=== PATIENT | male | born 1955 | race Caucasian/White ===

== ENCOUNTER 2019-01-28 12:12 | Inpatient (IN) | payer OTHER ==
[2019-01-28] MEDS ORDERED: Albuterol Sulfate 1.25 MG/3 ML NEB ONE (12:22)
[2019-01-28] MEDS ORDERED: Albuterol Sulfate 2.5 mg/3 ml Neb ONE (12:22)
[2019-01-28 13:14] LABS: Actual Bicarbonate (HCO3a) 31.6 mEq/L (22-28); Analyzer IN Cardio ER; Base Excess (BEa) 4.3 mEq/L (-2.0 to +3.0); CO2 Tension 58.5 mmHg (35.0-45.0); Calcium, Ionized 1.14 mmol/L (1.12-1.30); Carboxyhemoglobin (COHb) 0.9 gm% (0.0-3.0); Hemoglobin (Hb) 14.6 g/dL (14.0-18.0); Potassium - ABG Lab 4.29 mmol/L (3.70-5.30); pH, Arterial 7.35 (7.35-7.45)
[2019-01-28 13:16] LABS: Puncture Site LRA
[2019-01-28 13:17] LABS: ALV-art Gradient 17.995 (0-20)
[2019-01-28] MEDS ORDERED: hydrALAZINE 20 MG/ML VIAL ONE (13:42)
[2019-01-28 15:36] LABS: Troponin I Less than 0.010 ng/mL (< 0.028)
[2019-01-28] MEDS ORDERED: Magnesium 2 GM/50 ML 2 GM in Premix Bag 1 BAG IVPB SCH (17:00)
[2019-01-28] MEDS ORDERED: Benzonatate 100 MG CAP PO PRN (17:36)
[2019-01-28] MEDS ORDERED: Ondansetron PF 4 MG/2 ML Vial IVP PRN (17:36)
[2019-01-28] MEDS ORDERED: Ondansetron ODT 4 MG TAB PO PRN (17:36)
[2019-01-28] MEDS ORDERED: Acetaminophen 500 MG TAB PO PRN (17:36)
[2019-01-28 17:38] LABS: Troponin I Less than 0.010 ng/mL (< 0.028)
[2019-01-28] MEDS: methylPREDNISolone Sod Succ 40 MG VIAL IVP SCH (18:08)
[2019-01-28] MEDS: cloNIDine 0.1 MG TAB PO PRN (18:57)
[2019-01-28] MEDS: Mometasone/Formoterol 120 PUFF INHALER INH SCH (19:15)
[2019-01-28] MEDS: Montelukast Sodium 10 mg Tablet PO SCH (20:26)
[2019-01-28] MEDS: Famotidine 20 MG TAB PO SCH (20:27)
[2019-01-28] MEDS: hydrALAZINE 20 MG/ML VIAL SLOW IVP PRN (20:28)
[2019-01-28] MEDS: Nicotine 14 MG PATCH TD SCH (20:29)
[2019-01-28] MEDS ORDERED: Doxycycline 100 MG CAP PO SCH (21:00)
[2019-01-28] MEDS ORDERED: Lorazepam 2 MG/ML VIAL SLOW IVP SCH ×2 (21:15→22:30)
[2019-01-28] MEDS ORDERED: Furosemide 40 MG/4 ML VIAL ONE (22:38)
[2019-01-28] MEDS ORDERED: Furosemide 40 MG/4 ML VIAL SLOW IVP SCH (22:45)
[2019-01-28] MEDS ORDERED: Rocuronium Bromide 10 MG/ML (10ML VIAL) ONE (23:00)
[2019-01-28] MEDS ORDERED: Propofol 1,000 MG/100 ML VIAL IV ONE (23:02)
--- NOTE | 2019-01-28 23:21 | HP ---
PRIMARY CARE PROVIDER: David Herndon MD CHIEF COMPLAINT: Shortness of breath. HISTORY OF PRESENT ILLNESS: This is a 63-year-old male, who initially presented to [facility] complaining of persistent shortness of breath over the last 4 to 5 days. The patient was evaluated by his primary care provider and initiated on antibiotic therapy in addition to prednisone. The patient states he had been using his home nebulizer with increasing frequency most notable in the last 24 hours. The patient states he had persistent shortness of breath that was unremitting with some associated yellow sputum. The patient admitted some chest pressure and pain with shortness of breath, not relieved with his home nebulizer. The patient also admits to using Spiriva and Symbicort. However, this did not change his symptoms or improve his condition. The patient does admit to long-standing smoking history, cutting down to approximately 8 cigarettes a day. The patient denies any home oxygen need or use and denies any prior history of the need for a BiPAP noninvasive mechanical ventilation. The patient denied any documented fever and was afebrile during the initial ER evaluation. In the emergency room, the patient underwent general evaluation in [place], receiving Rocephin and Zithromax in addition to Solu-Medrol, magnesium, and bronchodilator therapy. The patient was also placed on BiPAP noninvasive mechanical ventilation due to concern for COPD exacerbation with persistent symptoms. The patient continued to require oxygen supplementation and BiPAP noninvasive mechanical ventilation and was transferred to [facility] for further evaluation. In the emergency room at [facility], the patient received hydralazine, bronchodilator therapy with DuoNebs, and albuterol sulfate and continued on BiPAP noninvasive mechanical ventilation. Due to the patient's persistent symptoms and need for BiPAP, the patient was transferred to the intermediate care unit for further evaluation. PAST MEDICAL HISTORY: 1. Tobacco abuse. 2. Chronic obstructive pulmonary disease. 3. Hypertension. 4. Lower extremity edema. 5. Restless legs syndrome. PAST SURGICAL HISTORY: 1. Status post vein removal of the left lower extremity. 2. Status post hemorrhoidectomy. 3. Status post LASIK surgery for the eyes. CURRENT MEDICATIONS: 1. Tudorza Pressair 400 mcg inhaled daily. 2. Albuterol sulfate 2 puffs inhaled q.4 hours p.r.n. 3. Celexa 40 mg p.o. daily. 4. Clonidine 0.2 mg p.o. daily. 5. DuoNeb 3 mL nebulized q.i.d. p.r.n. 6. Spiriva HandiHaler 18 mcg inhaled daily. 7. Verapamil extended release 360 mg p.o. daily. ALLERGIES: TO LISINOPRIL. FAMILY HISTORY: Mother of complications of congestive heart failure. Uncles with a history of coronary artery disease and lung cancer. Sister of complications of congestive heart failure. SOCIAL HISTORY: The patient resides in [place], [place]. Disabled. 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 Smokes up to 8 cigarettes daily. Smoked for approximately 40 years. Social alcohol use. The patient admits to social and intermittent marijuana use. REVIEW OF SYSTEMS: CONSTITUTIONAL: Negative for weight loss or gain, ability to conduct usual activities. SKIN: Negative for rash, itching. EYES: Negative for double vision, pain. ENT/MOUTH: Negative for nose bleeding, neck stiffness, pain, tenderness. CARDIOVASCULAR: Negative for palpitations, dyspnea on exertion, orthopnea. RESPIRATORY: Negative for shortness of breath, wheezing, cough, hemoptysis, fever or night sweats. GASTROINTESTINAL: Negative for poor appetite, abdominal pain, heartburn, nausea, vomiting, constipation, or diarrhea. GENITOURINARY: Negative for urgency, frequency, dysuria, nocturia. MUSCULOSKELETAL: Negative for pain, swelling. NEUROLOGIC/PSYCHIATRIC: Negative for anxiety, depression. ALLERGY/IMMUNOLOGIC: Negative for skin rash, bleeding tendency. Otherwise negative except as stated per HPI. PHYSICAL EXAMINATION: VITAL SIGNS: On admission, blood pressure 203/137, heart rate 149, temperature 98.3 degrees Fahrenheit, respiratory rate 24, currently on BiPAP noninvasive mechanical ventilation. GENERAL APPEARANCE: This is a 63-year-old male, alert and oriented x3, pleasant, responsive, in mild respiratory distress. HEENT: Pupils are equal, round, reactive to light and accommodation. Extraocular muscles are intact. BiPAP noninvasive mechanical ventilation mask in place. NECK: Supple, no adenopathy, JVD difficult to appreciate given the patient's body habitus and facial hair. CHEST: Diminished breath sounds bilaterally with coarse sounds and prolonged expiratory phase. CARDIOVASCULAR EXAM: S1 and S2 with tachycardia. No murmur appreciated. Distant heart sounds noted. ABDOMEN: Obese. Landmarks difficult to palpate due to patient's body habitus. EXTREMITIES: Warm and dry with fair turgor. No clubbing, cyanosis, or asymmetric edema appreciated. NEUROLOGIC: Cranial nerves 2 through 12 are grossly intact. No focal or lateralizing signs appreciated. The patient verbal and alert, responding to questions appropriately. PERTINENT LABORATORY DATA AND X-RAY FINDINGS: Basic metabolic profile within normal limits. Calcium 8.9, AST 70, ALT 115, alkaline phosphatase 56, total bilirubin 0.4. BNP 58. ABG dated 01/28/2019 showed a pH 7.35, pCO2 of 58.5, pO2 of 80, bicarb of 31.6, O2 saturation 96% on 24% FiO2 by BiPAP. CBC showed a white blood cell count of 14.8, hemoglobin 13, hematocrit 40, platelet count 163 with 81% neutrophils. EKG dated 01/28/2019 by my interpretation shows a sinus tachycardia with heart rates in the 110s. Normal R-wave progression noted in the precordial leads. Normal axis. No acute ST-T wave changes appreciated. Portable chest x-ray dated 01/28/2019 showed chronic changes in bilateral lung araujo. Poor quality chest film appears under penetrated. ASSESSMENT AND PLAN: 1. Acute hypoxic respiratory failure secondary to chronic obstructive pulmonary disease. We will continue treatment as outlined below. Continue BiPAP noninvasive mechanical ventilation, weaning as clinically indicated. Pulmonology consult appreciated. 2. Acute chronic obstructive pulmonary disease exacerbation. Continue bronchodilator therapy with DuoNebs q.4 hours. Doxycycline 100 mg b.i.d. Solu-Medrol 40 mg IV q.6 hours with additional Spiriva HandiHaler 18 mcg daily. Continue oxygen support as outlined in #1 and monitor clinical response. Pneumo vaccination prior to discharge. 3. Hypertensive urgency. Suspect stress reaction secondary to acute hypoxic respiratory failure and chronic obstructive pulmonary disease. We will resume home blood pressure regimen and add additional hydralazine and clonidine for systolic greater than 170. 4. Tobacco abuse. We will offer smoking cessation resources prior to discharge. Nicotine patch 14 mg transdermally daily. 5. Transaminitis. Etiology unclear. Questionable relation to current presentation. We will repeat LFTs and monitor trend. Potential fatty infiltration of the liver. 6. Prophylaxis. SCDs while in bed. Pepcid 20 mg p.o. b.i.d. CODE STATUS: Do not attempt resuscitation confirmed with the patient. Surrogate medical decision maker is Chelsea William. Job ID: [id number]
[2019-01-28] MEDS ORDERED: Ventilator Sedation Protocol 1 EACH FS ONE (23:22)
[2019-01-28] MEDS ORDERED: DISCONTINUE PREVIOUS NARCOTIC PAIN MEDICATIONS AND BENZODIAZEPINES FS SCH (23:24)
[2019-01-28] MEDS ORDERED: Propofol BOLUS 1,000 MG/100 ML VIAL IV PRN (23:24)
[2019-01-28] MEDS ORDERED: Fentanyl BOLUS 250 ML IVPB PRN (23:24)
[2019-01-28] MEDS ORDERED: Morphine 2 MG/ML SYRINGE SLOW IVP PRN (23:24)
--- NOTE | 2019-01-28 23:29 | PDOC.EVN ---
Event Note - Event Note Event Note: Pt became dyspneic, agitated, unable to tolerate BiPAP, in acute respiratory distress with very high BP/HR, b/l wheezing, labor breathing , respiratory failure, pt decided to have a trial of intubation and daughter agreed over the phone when contacted, with it since this intubation might be transitory, further decisions depepding on pt's clinical course
--- NOTE | 2019-01-28 23:49 | RAD ---
Portable supine frontal chest radiograph: 01/28/2019 COMPARISON: 01/28/2019 HISTORY: Status post intubation FINDINGS: There is a new endotracheal tube in proper position. There is a nasogastric tube present, d istal tip not visualized secondary to technique. There is mild pulmonary vascular prominence with no focal consolidation or alveolar edema. Supine imaging limits assessment for pneumothorax and pleural fluid. IMPRESSION: Endotracheal tube in place. Mild pulmonary vascular prominence with no focal consolidatio n or alveolar edema.
[2019-01-29] MEDS: Lorazepam 2 MG/ML VIAL SLOW IVP PRN ×4 (00:04→19:45)
[2019-01-29] MEDS: cefTRIAXone\\ROCEPHIN 1 GM in Sodium Chloride 0.9% 100 ML IVPB SCH ×2 (00:22→23:13)
[2019-01-29] MEDS: methylPREDNISolone Sod Succ 40 MG VIAL IVP SCH ×5 (00:25→23:14)
[2019-01-29] MEDS: fentaNYL Citrate/PF 2,000 MCG in Sodium Chloride 0.9% 60 ML IV SCH (00:45)
--- NOTE | 2019-01-29 01:44 | PDOC.EVN ---
Event Note - Event Note Event Note: Received page from [facility] nurse that pt needed to be intubated after a code green had been called. Pt on BiPAP on arrival. After confirming pt was not DNR/DNI and calling family, plan was made to intubate. Pt preoxygenated w/ bag mask and oral airway. Meds given included: etomidate 30mg, rocuronium 70mg [place] scope size 3 used to visualize vocal cords. 8-0 ET tube inserted through the vocal cords and advanced. Cuff inflated. ET tube 24cm at lips, 23 cm at teeth and secured in place. Breath sounds heard bilaterally and CO2 colorimeter indicated proper placement in trachea. RT managed ventilator settings. Nurses placed OG tube. Stat CXR to confirm placement. Placement of ET and OG tube appropriate. Dr. Echeverria & Dr. Marrero intubated. Dr. Hutchison (attending) present for duration of the event.
[2019-01-29] MEDS: Propofol 1,000 MG/100 ML VIAL IV PRN ×7 (01:57→23:13)
[2019-01-29 04:18] LABS: Hemoglobin 13.4 g/dL (14.0-18.0); Lymphocytes 5 % (21-51); MDiff Complete? YES; Mean Corpuscular HGB CONC 33.3 g/dL (32.0-36.0); Mean Corpuscular Hemoglobin 30.7 pg (27.0-31.0); Mean Corpuscular Volume 92.1 fL (78.0-98.0); Mean Platelet Volume 7.8 fL (7.4-10.4); Monocytes 4 % (0-10); Neutrophil 91 % (42-75); Platelet Count 180 thou/uL (130-400); Platelet Morphology Comment Appears Adequate; RBC Distribution Width 12.9 % (11.5-14.5); RBC Morphology Normal; Red Blood Cell (RBC) Count 4.37 mill/uL (4.70-6.10); White Blood Cell (WBC) Count 12.8 thou/uL (4.8-10.8)
[2019-01-29 04:26] LABS: ALT (SGPT) 98 U/L (8-55); AST (SGOT) 55 U/L (5-34); Albumin 4.1 g/dL (3.4-4.8); Alkaline Phosphatase 49 U/L (40-150); Anion Gap 12 mmol/L (10-20); BUN (Urea Nitrogen) 25 mg/dL (8.4-25.7); Bilirubin, Total 0.6 mg/dL (0.2-1.2); Calc. Creatinine Clearance 117 mL/min (70-130); Calcium 8.7 mg/dL (7.8-10.44); Carbon Dioxide 31 mmol/L (23-31); Chloride 98 mmol/L (98-107); Estimated GFR-MDRD 78; Globulin 2.5 g/dL (2.4-3.5); Glucose 135 mg/dL (80-115); Potassium 3.8 mmol/L (3.5-5.1); Protein, Total 6.6 g/dL (5.8-8.1); Sodium 137 mmol/L (136-145)
[2019-01-29] MEDS ORDERED: Furosemide 40 MG/4 ML VIAL SLOW IVP SCH (06:00)
[2019-01-29] MEDS: Mometasone/Formoterol 120 PUFF INHALER INH SCH ×2 (07:42→18:45)
[2019-01-29 07:50] LABS: Actual Bicarbonate (HCO3a) 31.3 mEq/L (22-28); Base Excess (BEa) 6.4 mEq/L (-2.0 to +3.0); Calcium, Ionized 1.11 mmol/L (1.12-1.30); Carboxyhemoglobin (COHb) 1.4 gm% (0.0-3.0); Hemoglobin (Hb) 13.5 g/dL (14.0-18.0); Potassium - ABG Lab 3.69 mmol/L (3.70-5.30); pH, Arterial 7.45 (7.35-7.45)
[2019-01-29 07:51] LABS: O2 Tension (PaO2) 58.2 mmHg (> 80.0)
[2019-01-29 07:52] LABS: Puncture Site RRA
[2019-01-29] MEDS: Citalopram 20 MG TAB PO SCH (08:17)
[2019-01-29] MEDS: cloNIDine 0.2 MG TAB PO SCH (08:17)
[2019-01-29] MEDS: Famotidine 20 MG TAB PO SCH ×2 (08:18→20:01)
[2019-01-29] MEDS: Famotidine/PF 20 mg/2ml Vial SLOW IVP SCH ×2 (08:18→20:02)
[2019-01-29] MEDS ORDERED: Spiriva 18 MCG CAP (Box of 5 Caps) INH SCH (09:00)
[2019-01-29] MEDS ORDERED: Doxycycline 100 MG in Syringe 0 ML IVPB SCH (09:00)
[2019-01-29] MEDS ORDERED: Acetaminophen 650 MG Suppository PR PRN (09:37)
[2019-01-29] MEDS ORDERED: Sodium Chloride 0.65% Nasal 44 ML BOT EA NARE PRN (09:37)
[2019-01-29] MEDS ORDERED: Cepastat Lozenges 1 LOZ PO PRN (09:37)
[2019-01-29] MEDS ORDERED: Senokot S 8.6-50 MG TAB PO PRN (09:37)
[2019-01-29] MEDS ORDERED: Bisacodyl 10 MG SUPP PR PRN (09:37)
[2019-01-29] MEDS ORDERED: Artificial Tears 18 DROP/0.9 ML EA EYE PRN (09:37)
[2019-01-29] MEDS ORDERED: Magnesium 2 GM/50 ML 2 GM in Premix Bag 1 BAG IVPB SCH (10:00)
--- NOTE | 2019-01-29 10:07 | PRG ---
DATE OF SERVICE: 01/29/2019 SUBJECTIVE: Marcos Epps is a 63-year-old morbidly obese gentleman, who was intubated last night after apparently he was unable to wear his BiPAP. OBJECTIVE: VITAL SIGNS: This morning, he is sedated. Blood pressure 131/76, pulse 88, and respiratory rate 18. CHEST: Diffuse wheezing. CARDIAC: Sinus tachycardia. ABDOMEN: Distended. LABORATORY DATA: White count 12,000. H and H normal. Chest x-ray was normal yesterday. His pO2 is 58, pCO2 FiO2. Lytes are normal. His x-ray post-intubation yesterday showed a questionable right-sided infiltrate. ASSESSMENT: 1. Metabolic encephalopathy. 2. Respiratory failure. 3. Chronic obstructive pulmonary disease. 4. Congestive heart failure. 5. Sleep apnea. 6. Hypertension. PLAN: Continue aggressive neb treatments, steroids. Try to wean and extubate in the next 24 to 48 hours. One-half hour of critical care time. Job ID: [id number]
--- NOTE | 2019-01-29 11:31 | PDOC.HOSPP ---
- Subjective Encounter Date: 01/29/19 Encounter Time: 09:30 non-verbal Subjective: last night he was intubated, this morning he is on ventilator - Objective Vital Signs & Weight: Vital Signs (12 hours) Temp Pulse Resp BP Pulse Ox 01/29/19 10:00 12 01/29/19 09:53 98 01/29/19 08:17 115/73 01/29/19 08:00 98.6 F 16 97 01/29/19 07:43 82 01/29/19 06:00 16 01/29/19 04:00 98.7 F 16 01/29/19 03:33 93 01/29/19 03:26 100 01/29/19 02:00 20 01/29/19 00:00 97.8 F 20 01/28/19 23:54 108 H 194/125 H 99 01/28/19 23:49 95 Weight Weight 231 lb 14.821 oz Most Recent Monitor Data Heart Rate from ECG 107 NIBP 99/69 NIBP BP-Mean 79 Respiration from ECG 21 SpO2 93 I&O: 01/28/19 01/29/19 01/30/19 06:59 06:59 06:59 Intake Total 974.0 Output Total 3950 755 Balance -2976.0 -755 Result Diagrams: 01/29/19 03:48 01/29/19 03:48 Radiology Reviewed by me: Yes (chest xray reviewed) EKG Reviewed by me: Yes (nsr) Hospitalist ROS - Review of Systems ROS unobtainable: due to endotracheal tube - Medication Medications: Active Medications Generic Name Dose Route Start Last Admin Trade Name Freq PRN Reason Stop Dose Admin Albuterol/Ipratropium 3 ml 01/29/19 10:00 01/29/19 09:59 Duoneb NEB 3 ml [id number] CARLOS Administration Citalopram Hydrobromide 40 mg 01/29/19 09:00 01/29/19 08:17 Celexa PO 40 mg DAILY CARLOS Administration Clonidine 0.1 mg 01/28/19 17:36 01/28/19 18:57 Catapres PO 0.1 mg Q4H PRN Administration SBP Greater Than 170 Clonidine 0.2 mg 01/29/19 09:00 01/29/19 08:17 Catapres PO 0.2 mg DAILY CARLOS Administration Famotidine 20 mg 01/28/19 21:00 01/29/19 08:18 Pepcid PO Not Given BID CARLOS Famotidine 20 mg 01/29/19 09:00 01/29/19 08:18 Pepcid SLOW IVP 20 mg BID CARLOS Administration Hydralazine HCl 10 mg 01/28/19 17:36 01/28/19 20:28 Apresoline SLOW IVP 10 mg Q4H PRN Administration SBP > 180 and HR < 70 Ceftriaxone Sodium 1 gm/ 100 mls @ 200 mls/hr 01/28/19 23:30 01/29/19 00:22 Sodium Chloride IVPB 100 mls Q24HR CARLOS Administration Fentanyl Citrate 2,000 mcg/ 100 mls @ 0 mls/hr 01/28/19 23:24 01/29/19 00:45 Sodium Chloride IV 02/27/19 23:24 100 mls INF CARLOS Administration Protocol Per Protocol Doxycycline Hyclate 100 mg/ 100 mls @ 100 mls/hr 01/29/19 09:00 01/29/19 08: 17 Sodium Chloride IVPB 100 mls Q12HR CARLOS Administration Magnesium Sulfate 2 gm/ Device 50 mls @ 50 mls/hr 01/29/19 10:00 01/29/19 11: 04 IVPB 01/29/19 12:00 50 mls NOW CARLOS Administration Lorazepam 2 mg 01/28/19 23:24 01/29/19 11:03 Ativan SLOW IVP 02/27/19 23:24 2 mg Q1H PRN Administration Breakthrough agitation Methylprednisolone Sodium Succinate 40 mg 01/28/19 18:00 01/29/19 11:04 Solu-Medrol IVP 40 mg Q6HR CARLOS Administration Mometasone Furoate/Formoterol Fumar 2 puff 01/28/19 18:30 01/29/19 07:42 Dulera 200 Mcg/5 Mcg Inhaler INH 2 puff BID-RT CARLOS Administration Montelukast Sodium 10 mg 01/28/19 21:00 01/28/19 20:26 Singulair PO 10 mg QPM CARLOS Administration Morphine Sulfate 2 mg 01/28/19 23:24 01/29/19 00:14 Morphine SLOW IVP 02/27/19 23:24 2 mg Q1H PRN Administration BREAKTHROUGH PAIN/Agitation Nicotine 14 mg 01/28/19 20:00 01/28/19 20:29 Nicoderm Patch TD Not Given 1999 CARLOS Propofol 1,000 mg 01/28/19 23:24 01/29/19 08:18 Diprivan IV 02/27/19 23:24 1,000 mg INF PRN Administration TO ACHIEVE GOAL RASS Protocol Sodium Chloride 10 ml 01/29/19 09:00 01/29/19 08:18 Flush - Normal Saline IVF 10 ml Q12HR CARLOS Administration Verapamil HCl 360 mg 01/29/19 09:00 01/29/19 11:25 Calan Er PO Not Given DAILY CARLOS - Exam General Appearance: NAD General - other findings: intubated Eye: PERRL, anicteric sclera ENT: normocephalic atraumatic, no oropharyngeal lesions Neck: symmetric, no JVD, no thyromegaly, no lymphadenopathy Heart: RRR, no murmur, no gallops Respiratory: rales, wheezes Gastrointestinal: soft, non-distended, normal bowel sounds Extremities: no cyanosis, no clubbing, no edema Skin: normal turgor, no lesions Hosp A/P (1) Acute respiratory failure with hypoxia Code(s): J96.01 - ACUTE RESPIRATORY FAILURE WITH HYPOXIA Status: Acute (2) COPD exacerbation Code(s): J44.1 - CHRONIC OBSTRUCTIVE PULMONARY DISEASE W (ACUTE) EXACERBATION Status: Acute (3) Acute metabolic encephalopathy Code(s): G93.41 - METABOLIC ENCEPHALOPATHY Status: Acute (4) Hypertensive urgency Code(s): I16.0 - HYPERTENSIVE URGENCY Status: Acute (5) Transaminitis Code(s): R74.0 - NONSPEC ELEV OF LEVELS OF TRANSAMNS & LACTIC ACID DEHYDRGNSE Status: Acute (6) Tobacco abuse Code(s): Z72.0 - TOBACCO USE Status: Chronic (7) Obesity (BMI 30-39.9) Code(s): E66.9 - OBESITY, UNSPECIFIED Status: Chronic - Plan old records reviewed/req, plan discussed w/ family, ochoa catheter, continue antibiotics, respiratory therapy, DVT proph w/lovenox, DVT proph w/SCDs 01/29/19- continue vent management as per pulmonary, will repeat labs tomorrow, continue respiratory therapy and close monitoring, medication reviewed
[2019-01-29] MEDS: Verapamil 80 MG TAB PO SCH ×2 (16:52→20:38)
[2019-01-29] MEDS: Montelukast Sodium 10 mg Tablet PO SCH (20:02)
[2019-01-29] MEDS: Nicotine 14 MG PATCH TD SCH (20:38)
[2019-01-30] MEDS: Propofol 1,000 MG/100 ML VIAL IV PRN ×5 (02:28→17:24)
[2019-01-30] MEDS: Lorazepam 2 MG/ML VIAL SLOW IVP PRN ×2 (04:22→12:30)
[2019-01-30 05:11] LABS: #Lymphocytes 0.8 thou/uL (1.20-3.40); #Monocytes 0.6 thou/uL (0.11-0.59); #Neutrophils 10.6 thou/uL (1.40-6.50); %Basophils 0.2 % (0.0-1.0); %Eosinophils 0.2 % (0.0-10.0); %Lymphocytes 6.4 % (21.0-51.0); %Neutrophils 88.2 % (42.0-75.0); Hemoglobin 13.1 g/dL (14.0-18.0); Mean Corpuscular HGB CONC 33.6 g/dL (32.0-36.0); Mean Corpuscular Hemoglobin 31.1 pg (27.0-31.0); Mean Corpuscular Volume 92.5 fL (78.0-98.0); Platelet Count 163 thou/uL (130-400); RBC Distribution Width 13.2 % (11.5-14.5); Red Blood Cell (RBC) Count 4.22 mill/uL (4.70-6.10); White Blood Cell (WBC) Count 12.1 thou/uL (4.8-10.8)
[2019-01-30] MEDS: methylPREDNISolone Sod Succ 40 MG VIAL IVP SCH ×4 (05:22→23:33)
[2019-01-30 05:35] LABS: Anion Gap 10 mmol/L (10-20); BUN (Urea Nitrogen) 38 mg/dL (8.4-25.7); Calc. Creatinine Clearance 119 mL/min (70-130); Calcium 8.5 mg/dL (7.8-10.44); Carbon Dioxide 31 mmol/L (23-31); Chloride 100 mmol/L (98-107); Estimated GFR-MDRD 82; Glucose 121 mg/dL (80-115); Potassium 4.1 mmol/L (3.5-5.1); Sodium 137 mmol/L (136-145)
[2019-01-30 07:29] LABS: Actual Bicarbonate (HCO3a) 33.5 mEq/L (22-28); Base Excess (BEa) 6.1 mEq/L (-2.0 to +3.0); CO2 Tension 60.9 mmHg (35.0-45.0); Calcium, Ionized 1.14 mmol/L (1.12-1.30); Carboxyhemoglobin (COHb) 1.3 gm% (0.0-3.0); Hemoglobin (Hb) 13.6 g/dL (14.0-18.0); O2 Tension (PaO2) 83.9 mmHg (> 80.0); Potassium - ABG Lab 4.26 mmol/L (3.70-5.30); pH, Arterial 7.36 (7.35-7.45)
[2019-01-30 07:30] LABS: Puncture Site RRA
[2019-01-30 07:31] LABS: ALV-art Gradient 89.525 (0-20)
[2019-01-30] MEDS: Mometasone/Formoterol 120 PUFF INHALER INH SCH ×2 (07:32→18:31)
--- NOTE | 2019-01-30 07:52 | RAD ---
EXAM: Portable chest PROVIDED CLINICAL HISTORY: Respiratory insufficiency COMPARISON: 01/28/2019 FINDINGS: Significant interval change with respect to the prior examination is not apparent. IMPRESSION: As above.
[2019-01-30] MEDS: Famotidine/PF 20 mg/2ml Vial SLOW IVP SCH ×2 (08:25→20:21)
[2019-01-30] MEDS: cloNIDine 0.2 MG TAB PO SCH (08:25)
[2019-01-30] MEDS: Citalopram 20 MG TAB PO SCH (08:25)
[2019-01-30] MEDS: Famotidine 20 MG TAB PO SCH ×2 (08:26→20:21)
[2019-01-30] MEDS: Verapamil 80 MG TAB PO SCH ×4 (08:26→20:20)
--- NOTE | 2019-01-30 10:16 | PRG ---
DATE OF SERVICE: 01/30/2019 SUBJECTIVE: A 63-year-old gentleman remains intubated on the vent, sedated. OBJECTIVE: VITAL SIGNS: Pulse 69, blood pressure 138/100, oxygen saturation 90%, respiratory rate 14. GENERAL: He is sedated. I's and O's have been consistently negative. CHEST: Decreased breath sounds. No wheezing. CARDIAC: Normal S1 and S2. No gallop. ABDOMEN: No mass. LABORATORY DATA: His blood gas shows a pO2 of 83, pCO2 of 60%, rate of 14, 30%. ASSESSMENT: Hypertension, respiratory failure, chronic obstructive pulmonary disease, sleep apnea, encephalopathy. PLAN: Minimize sedation. Start nutrition PT. Hopefully, we will try and get him off the vent in the next 24 to 48 hours. Meantime continue aggressive neb treatments, PT, supportive care. Recently, his echo showed an EF that was apparently normal. One-half hour of critical time. Job ID: [id number]
--- NOTE | 2019-01-30 10:19 | PDOC.HOSPP ---
- Subjective Encounter Date: 01/30/19 Encounter Time: 09:50 Subjective: Patient seen and examined. intubated, on vent, No overnight events - Objective Vital Signs & Weight: Vital Signs (12 hours) Temp Pulse Resp BP BP 01/30/19 08:25 132/82 01/30/19 08:00 98.7 F 01/30/19 07:32 77 01/30/19 06:00 16 01/30/19 04:00 98.8 F 16 01/30/19 02:34 85 01/30/19 02:00 14 01/30/19 00:00 14 01/29/19 23:00 116/73 01/29/19 22:22 86 Weight Admit Weight 233 lb 3.2 oz Weight 225 lb 4.999 oz Most Recent Monitor Data Heart Rate from ECG 76 NIBP 133/79 NIBP BP-Mean 97 Respiration from ECG 14 SpO2 99 I&O: 01/29/19 01/30/19 01/31/19 06:59 06:59 06:59 Intake Total 974.0 1676 100 Output Total 3950 1885 185 Balance -2976.0 -209 -85 Result Diagrams: 01/30/19 04:50 01/30/19 04:50 Radiology Reviewed by me: Yes (chest xray reviewed) EKG Reviewed by me: Yes (nsr) Hospitalist ROS - Review of Systems ROS unobtainable: due to endotracheal tube - Medication Medications: Active Medications Generic Name Dose Route Start Last Admin Trade Name Freq PRN Reason Stop Dose Admin Citalopram Hydrobromide 40 mg 01/29/19 09:00 01/30/19 08:25 Celexa PO 40 mg DAILY CARLOS Administration Clonidine 0.1 mg 01/28/19 17:36 01/28/19 18:57 Catapres PO 0.1 mg Q4H PRN Administration SBP Greater Than 170 Clonidine 0.2 mg 01/29/19 09:00 01/30/19 08:25 Catapres PO 0.2 mg DAILY CARLOS Administration Famotidine 20 mg 01/28/19 21:00 01/30/19 08:26 Pepcid PO Not Given BID CARLOS Famotidine 20 mg 01/29/19 09:00 01/30/19 08:25 Pepcid SLOW IVP 20 mg BID CARLOS Administration Hydralazine HCl 10 mg 01/28/19 17:36 01/28/19 20:28 Apresoline SLOW IVP 10 mg Q4H PRN Administration SBP > 180 and HR < 70 Ceftriaxone Sodium 1 gm/ 100 mls @ 200 mls/hr 01/28/19 23:30 01/29/19 23:13 Sodium Chloride IVPB 100 mls Q24HR CARLOS Administration Fentanyl Citrate 2,000 mcg/ 100 mls @ 0 mls/hr 01/28/19 23:24 01/29/19 00:45 Sodium Chloride IV 02/27/19 23:24 100 mls INF CARLOS Administration Protocol Per Protocol Lorazepam 2 mg 01/28/19 23:24 01/30/19 04:22 Ativan SLOW IVP 02/27/19 23:24 2 mg Q1H PRN Administration Breakthrough agitation Methylprednisolone Sodium Succinate 40 mg 01/28/19 18:00 01/30/19 05:22 Solu-Medrol IVP 40 mg Q6HR CARLOS Administration Mometasone Furoate/Formoterol Fumar 2 puff 01/28/19 18:30 01/30/19 07:32 Dulera 200 Mcg/5 Mcg Inhaler INH 2 puff BID-RT CARLOS Administration Montelukast Sodium 10 mg 01/28/19 21:00 01/29/19 20:02 Singulair PO 10 mg QPM CARLOS Administration Morphine Sulfate 2 mg 01/28/19 23:24 01/29/19 00:14 Morphine SLOW IVP 02/27/19 23:24 2 mg Q1H PRN Administration BREAKTHROUGH PAIN/Agitation Nicotine 14 mg 01/28/19 20:00 01/29/19 20:38 Nicoderm Patch TD 14 mg 2000 CARLOS Administration Propofol 1,000 mg 01/28/19 23:24 01/30/19 08:25 Diprivan IV 02/27/19 23:24 1,000 mg INF PRN Administration TO ACHIEVE GOAL RASS Protocol Sodium Chloride 10 ml 01/29/19 09:00 01/30/19 08:26 Flush - Normal Saline IVF 10 ml Q12HR CARLOS Administration Verapamil HCl 80 mg 01/29/19 17:00 01/30/19 08:26 Calan PO 80 mg QID CARLOS Administration - Exam General - other findings: on vent, sedated Eye: PERRL, anicteric sclera ENT: normocephalic atraumatic, no oropharyngeal lesions Neck: supple, symmetric, no JVD Heart: RRR, no murmur, no gallops Respiratory: CTAB, no rales, no ronchi Gastrointestinal: soft, non-distended, normal bowel sounds Extremities: no cyanosis, no clubbing, no edema Skin: normal turgor, no lesions Hosp A/P (1) Acute respiratory failure with hypoxia and hypercapnia Code(s): J96.01 - ACUTE RESPIRATORY FAILURE WITH HYPOXIA; J96.02 - ACUTE RESPIRATORY FAILURE WITH HYPERCAPNIA Status: Acute (2) COPD exacerbation Code(s): J44.1 - CHRONIC OBSTRUCTIVE PULMONARY DISEASE W (ACUTE) EXACERBATION Status: Acute (3) Acute metabolic encephalopathy Code(s): G93.41 - METABOLIC ENCEPHALOPATHY Status: Acute (4) Hypertensive urgency Code(s): I16.0 - HYPERTENSIVE URGENCY Status: Acute (5) Transaminitis Code(s): R74.0 - NONSPEC ELEV OF LEVELS OF TRANSAMNS & LACTIC ACID DEHYDRGNSE Status: Acute (6) Tobacco abuse Code(s): Z72.0 - TOBACCO USE Status: Chronic (7) Obesity (BMI 30-39.9) Code(s): E66.9 - OBESITY, UNSPECIFIED Status: Chronic - Plan old records reviewed/req, plan discussed w/ family, continue antibiotics, respiratory therapy 01/29/19- continue vent management as per pulmonary, will repeat labs tomorrow, continue respiratory therapy and close monitoring, medication reviewed 01/30- pt has failed for extubation trial, continue vent as per pulmonary, updated plan to family, medication reviewed as above, symptomatic treatment, continue medical treatment for copd
[2019-01-30] MEDS: Budesonide 0.25 MG/2 ML NEB INH SCH ×4 (11:03→22:22)
[2019-01-30] MEDS ORDERED: Budesonide 0.25 MG/2 ML NEB ONE (11:05)
--- NOTE | 2019-01-30 12:24 | CON ---
DATE OF CONSULTATION: HISTORY OF PRESENT ILLNESS: Marcos Epps is a 63-year-old gentleman from [place] up to 2 pack-a-day smoker who has known history of COPD, asthma, symptoms have been going on off and on for the last 2 years, but got progressively worse today, such that walking even 50 feet, became extremely short of breath. A chest x-ray was taken, which was unremarkable. He was given neb treatments and steroids en route to the MICU at [facility]. For a brief period of time, he was placed on BiPAP. Upon arrival to the MICU, he is able to converse, talk, and is somewhat better, still short of breath. No chest pain. No chills. PAST MEDICAL HISTORY: Hypertension, COPD, asthma, unknown lower leg problems, lower extremity swelling. PAST SURGICAL HISTORY: Left leg vein surgery, hemorrhoid surgery, eye surgery, teeth surgery. ALLERGIES: PENICILLIN. MEDICATIONS: Home medicine otherwise includes apparently, 1. Verapamil 120. 2. Vitamin D. 3. Aspirin. 4. Catapres. 5. Albuterol. 6. Spiriva. 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 REVIEW OF SYSTEMS: Otherwise 10-point negative. PHYSICAL EXAMINATION: GENERAL: He is in mild distress, saturations are 94% on nasal O2, pulse 80, respiratory rate 18, blood pressure . CHEST: Diffuse wheezing. CARDIAC: Normal S1, S2. No gallops. ABDOMEN: No masses. LABORATORY DATA: X-ray is clear. PO2 80, pCO2 . IMPRESSION: Chronic obstructive pulmonary disease exacerbation, lower extremity swelling, probably sleep apnea, hypertension. PLAN: Steroids, neb treatment, magnesium, empiric antibiotics have been initiated. When stable, outpatient sleep study. He is to refrain from smoking. This is a consultation note, 70 minutes, 50% direct patient care. Job ID: [id number]
[2019-01-30] MEDS: fentaNYL Citrate/PF 2,000 MCG in Sodium Chloride 0.9% 60 ML IV SCH (13:36)
[2019-01-30] MEDS ORDERED: Rocuronium Bromide 10 MG/ML (10ML VIAL) ONE (14:34)
[2019-01-30] MEDS: Rocuronium Bromide 10 MG/ML (10ML VIAL) IVP PRN ×4 (14:35→21:45)
[2019-01-30] MEDS: Sodium Chloride 0.9% 1,000 ML IV SCH (14:48)
[2019-01-30] MEDS: Montelukast Sodium 10 mg Tablet PO SCH (20:20)
[2019-01-30] MEDS: Nicotine 14 MG PATCH TD SCH (20:20)
[2019-01-30] MEDS: cefTRIAXone\\ROCEPHIN 1 GM in Sodium Chloride 0.9% 100 ML IVPB SCH (23:32)
[2019-01-31] MEDS: Rocuronium Bromide 10 MG/ML (10ML VIAL) IVP PRN (00:04)
[2019-01-31] MEDS: Budesonide 0.25 MG/2 ML NEB INH SCH ×6 (02:45→21:51)
[2019-01-31] MEDS: Sodium Chloride 0.9% 1,000 ML IV SCH ×3 (04:00→21:14)
[2019-01-31] MEDS: methylPREDNISolone Sod Succ 40 MG VIAL IVP SCH ×4 (06:07→23:42)
[2019-01-31] MEDS: Mometasone/Formoterol 120 PUFF INHALER INH SCH ×2 (06:26→17:59)
[2019-01-31 06:36] LABS: Actual Bicarbonate (HCO3a) 30.1 mEq/L (22-28); Base Excess (BEa) 1.3 mEq/L (-2.0 to +3.0); Carboxyhemoglobin (COHb) 1.2 gm% (0.0-3.0); Hemoglobin (Hb) 13.7 g/dL (14.0-18.0); O2 Tension (PaO2) 82.2 mmHg (> 80.0); Potassium - ABG Lab 4.37 mmol/L (3.70-5.30); pH, Arterial 7.27 (7.35-7.45)
[2019-01-31 06:39] LABS: CO2 Tension 67.7 mmHg (35.0-45.0); Puncture Site RRA
[2019-01-31 06:40] LABS: ALV-art Gradient 82.725 (0-20)
--- NOTE | 2019-01-31 07:24 | RAD ---
CHEST 1 VIEW: Date: 01/31/19 INDICATION: CCU examination and intubation. COMPARISON: Prior exam dated 01/30/19. FINDINGS: The patient remains intubated. There is worsening bibasilar air space opacities which may reflect sub segmental atelectasis or possibly developing pneumonia. There are tiny bilateral pleural effusions th at appear slightly more prominent than the prior exam. No pneumothorax is evident. IMPRESSION: 1. Worsening bibasilar opacities and bilateral pleural effusions. 2. Stable ET tube. POS: BH
[2019-01-31] MEDS: fentaNYL Citrate/PF 2,000 MCG in Sodium Chloride 0.9% 60 ML IV SCH (07:58)
[2019-01-31] MEDS: Propofol 1,000 MG/100 ML VIAL IV PRN ×4 (08:21→23:41)
[2019-01-31] MEDS: Enoxaparin Sodium 40 MG/0.4 ML SYRINGE SC SCH (08:21)
[2019-01-31] MEDS: Citalopram 20 MG TAB PO SCH (08:21)
[2019-01-31] MEDS: cloNIDine 0.2 MG TAB PO SCH (08:21)
[2019-01-31] MEDS: Famotidine/PF 20 mg/2ml Vial SLOW IVP SCH ×2 (08:21→21:15)
[2019-01-31] MEDS: Famotidine 20 MG TAB PO SCH ×2 (08:55→21:28)
[2019-01-31] MEDS: Verapamil 80 MG TAB PO SCH ×4 (08:55→21:16)
--- NOTE | 2019-01-31 09:28 | PRG ---
DATE OF SERVICE: 01/31/2019 SUBJECTIVE: Marcos Epps is a 63-year-old gentleman, intubated in the vent, agitated, still has significant expiratory wheezing, though he is much improved. OBJECTIVE: VITAL SIGNS: His pulse is 107, blood pressure 150/60, respiratory rate 20. CHEST: Prolonged expiration and wheezing. CARDIAC: Sinus tach. ABDOMEN: No mass. LABORATORY DATA: PO2 of 82, pCO2 . X-ray shows no obvious infiltrate. IMPRESSION: Chronic obstructive pulmonary disease exacerbation, bronchitis, sleep apnea, agitation. PLAN: Still not weanable today. He had to be paralyzed. We will start weaning once neurologically he is stable. One half hour critical care time. Job ID: [id number]
[2019-01-31 10:29] LABS: Magnesium 2.8 mg/dL (1.6-2.6); Phosphorus 3.3 mg/dL (2.3-4.7)
--- NOTE | 2019-01-31 16:46 | PDOC.HOSPP ---
- Subjective Encounter Date: 01/31/19 Encounter Time: 11:00 Subjective: Mr. Epps was seen today in follow-up of COPD exacerbation. He is intubated and sedated. - Objective Vital Signs & Weight: Vital Signs (12 hours) Temp Pulse Resp BP Pulse Ox 01/31/19 16:00 98.9 F 16 01/31/19 14:42 78 01/31/19 14:40 78 14 97 01/31/19 14:00 14 01/31/19 13:26 79 14 98 01/31/19 12:00 99.0 F 14 01/31/19 10:18 82 24 H 97 01/31/19 10:00 14 01/31/19 08:21 143/83 H 01/31/19 08:00 98.8 F 14 80 L 01/31/19 06:24 88 14 98 01/31/19 06:00 14 01/31/19 05:35 83 14 98 01/31/19 04:45 74 14 99 Weight Admit Weight 233 lb 3.2 oz Weight 228 lb 2.855 oz Most Recent Monitor Data Heart Rate from ECG 81 NIBP 144/82 NIBP BP-Mean 102 Respiration from ECG 16 SpO2 97 I&O: 01/30/19 01/31/19 02/01/19 06:59 06:59 06:59 Intake Total 1676 2881 60 Output Total 1885 1375 615 Balance -209 1503 -732 Result Diagrams: 01/30/19 04:50 01/30/19 04:50 Hospitalist ROS - Medication Medications: Active Medications Generic Name Dose Route Start Last Admin Trade Name Freq PRN Reason Stop Dose Admin Albuterol/Ipratropium 3 ml 01/30/19 15:00 01/31/19 14:41 Duoneb NEB 3 ml [id number] CARLOS Administration Budesonide 0.25 mg 01/30/19 14:30 01/31/19 14:40 Pulmicort Neb Solution INH 0.25 mg [id number] CARLOS Administration Citalopram Hydrobromide 40 mg 01/29/19 09:00 01/31/19 08:21 Celexa PO 40 mg DAILY CARLOS Administration Clonidine 0.1 mg 01/28/19 17:36 01/28/19 18:57 Catapres PO 0.1 mg Q4H PRN Administration SBP Greater Than 170 Clonidine 0.2 mg 01/29/19 09:00 01/31/19 08:21 Catapres PO 0.2 mg DAILY CARLOS Administration Enoxaparin Sodium 40 mg 01/31/19 09:00 01/31/19 08:21 Lovenox SC 40 mg 0900 CARLOS Administration Famotidine 20 mg 01/28/19 21:00 01/31/19 08:55 Pepcid PO Not Given BID CARLOS Famotidine 20 mg 01/29/19 09:00 01/31/19 08:21 Pepcid SLOW IVP 20 mg BID CARLOS Administration Hydralazine HCl 10 mg 01/28/19 17:36 01/28/19 20:28 Apresoline SLOW IVP 10 mg Q4H PRN Administration SBP > 180 and HR < 70 Ceftriaxone Sodium 1 gm/ 100 mls @ 200 mls/hr 01/28/19 23:30 01/30/19 23:32 Sodium Chloride IVPB 100 mls Q24HR CARLOS Administration Fentanyl Citrate 2,000 mcg/ 100 mls @ 0 mls/hr 01/28/19 23:24 01/31/19 07:58 Sodium Chloride IV 02/27/19 23:24 100 mls INF CARLOS Administration Protocol Per Protocol Dexmedetomidine HCl 200 mcg/ 50 mls @ 0 mls/hr 01/30/19 10:45 01/30/19 11:44 Sodium Chloride IVPB 50 mls INF CARLOS Administration Protocol Per Protocol Sodium Chloride 1,000 mls @ 100 mls/hr 01/30/19 14:45 01/31/19 11:43 Normal Saline 0.9% IV 1,000 mls .Q10H CARLOS Administration Lorazepam 2 mg 01/28/19 23:24 01/30/19 12:30 Ativan SLOW IVP 02/27/19 23:24 2 mg Q1H PRN Administration Breakthrough agitation Methylprednisolone Sodium Succinate 40 mg 01/28/19 18:00 01/31/19 11:44 Solu-Medrol IVP 40 mg Q6HR CARLOS Administration Mometasone Furoate/Formoterol Fumar 2 puff 01/28/19 18:30 01/31/19 06:26 Dulera 200 Mcg/5 Mcg Inhaler INH 2 puff BID-RT CARLOS Administration Montelukast Sodium 10 mg 01/28/19 21:00 01/30/19 20:20 Singulair PO 10 mg QPM CARLOS Administration Morphine Sulfate 2 mg 01/28/19 23:24 01/29/19 00:14 Morphine SLOW IVP 02/27/19 23:24 2 mg Q1H PRN Administration BREAKTHROUGH PAIN/Agitation Nicotine 14 mg 01/28/19 20:00 01/30/19 20:20 Nicoderm Patch TD 14 mg 2000 CARLOS Administration Propofol 1,000 mg 01/28/19 23:24 01/31/19 12:54 Diprivan IV 02/27/19 23:24 1,000 mg INF PRN Administration TO ACHIEVE GOAL RASS Protocol Rocuronium [place] 60 mg 01/30/19 14:43 01/31/19 00:04 Zemuron IVP 60 mg Q2H PRN Administration .PARALYZE Sodium Chloride 10 ml 01/29/19 09:00 01/31/19 08:55 Flush - Normal Saline IVF 10 ml Q12HR CARLOS Administration Verapamil HCl 80 mg 01/29/19 17:00 01/31/19 12:54 Calan PO 80 mg QID CARLOS Administration - Exam Eye: PERRL, anicteric sclera Heart: RRR, no murmur, no gallops, no rubs, normal peripheral pulses Respiratory: no rales, no ronchi, normal chest expansion, wheezes (+ scattered wheezing, and long expiratory phase) Gastrointestinal: soft, non-tender, non-distended, normal bowel sounds, no palpable masses, no hepatomegaly, no splenomegaly Extremities: no cyanosis, 1+ LE edema Hosp A/P (1) Acute respiratory failure with hypoxia and hypercapnia Code(s): J96.01 - ACUTE RESPIRATORY FAILURE WITH HYPOXIA; J96.02 - ACUTE RESPIRATORY FAILURE WITH HYPERCAPNIA Status: Acute (2) COPD exacerbation Code(s): J44.1 - CHRONIC OBSTRUCTIVE PULMONARY DISEASE W (ACUTE) EXACERBATION Status: Acute (3) Hypertension Code(s): I10 - ESSENTIAL (PRIMARY) HYPERTENSION Status: Chronic - Plan * Acute on chronic respiratory failure with hypoxemia- he continues to require ventilator support * Continue Neb, steroids, and long acting beta-agonist * HTN- blood pressure is stable * Nutritional support with tube feeds * GI and DVT prophylaxis
[2019-01-31] MEDS: Nicotine 14 MG PATCH TD SCH (21:14)
[2019-01-31] MEDS: Montelukast Sodium 10 mg Tablet PO SCH (21:15)
[2019-01-31] MEDS: cefTRIAXone\\ROCEPHIN 1 GM in Sodium Chloride 0.9% 100 ML IVPB SCH (23:42)
[2019-02-01] MEDS: fentaNYL Citrate/PF 2,000 MCG in Sodium Chloride 0.9% 60 ML IV SCH ×2 (01:31→21:57)
[2019-02-01] MEDS: Budesonide 0.25 MG/2 ML NEB INH SCH ×6 (02:08→22:13)
[2019-02-01] MEDS: Propofol 1,000 MG/100 ML VIAL IV PRN ×5 (04:03→23:03)
[2019-02-01 04:17] LABS: #Basophils 0.1 thou/uL (0.0-0.2); #Eosinphils 0.1 thou/uL (0.0-0.7); #Lymphocytes 0.5 thou/uL (1.20-3.40); #Monocytes 0.6 thou/uL (0.11-0.59); #Neutrophils 9.2 thou/uL (1.40-6.50); %Basophils 0.9 % (0.0-1.0); %Eosinophils 1.1 % (0.0-10.0); %Lymphocytes 4.9 % (21.0-51.0); %Monocytes 5.7 % (0.0-10.0); %Neutrophils 87.4 % (42.0-75.0); Hemoglobin 12.8 g/dL (14.0-18.0); Mean Corpuscular HGB CONC 32.7 g/dL (32.0-36.0); Mean Corpuscular Hemoglobin 30.8 pg (27.0-31.0); Mean Corpuscular Volume 94.1 fL (78.0-98.0); Mean Platelet Volume 7.5 fL (7.4-10.4); Platelet Count 141 thou/uL (130-400); RBC Distribution Width 12.8 % (11.5-14.5); Red Blood Cell (RBC) Count 4.14 mill/uL (4.70-6.10); White Blood Cell (WBC) Count 10.5 thou/uL (4.8-10.8)
[2019-02-01 04:40] LABS: Anion Gap 10 mmol/L (10-20); BUN (Urea Nitrogen) 41 mg/dL (8.4-25.7); Calc. Creatinine Clearance 132 mL/min (70-130); Calcium 8.2 mg/dL (7.8-10.44); Carbon Dioxide 32 mmol/L (23-31); Chloride 104 mmol/L (98-107); Estimated GFR-MDRD Greater than 90; Glucose 148 mg/dL (80-115); Potassium 4.9 mmol/L (3.5-5.1); Sodium 141 mmol/L (136-145)
[2019-02-01] MEDS: methylPREDNISolone Sod Succ 40 MG VIAL IVP SCH ×4 (06:02→23:16)
[2019-02-01] MEDS: Mometasone/Formoterol 120 PUFF INHALER INH SCH ×2 (06:52→18:40)
[2019-02-01 07:04] LABS: Actual Bicarbonate (HCO3a) 33.3 mEq/L (22-28); Base Excess (BEa) 4.5 mEq/L (-2.0 to +3.0); Calcium, Ionized 1.21 mmol/L (1.12-1.30); Carboxyhemoglobin (COHb) 1.1 gm% (0.0-3.0); Hemoglobin (Hb) 13.5 g/dL (14.0-18.0); O2 Tension (PaO2) 74.3 mmHg (> 80.0); Potassium - ABG Lab 5.03 mmol/L (3.70-5.30); pH, Arterial 7.29 (7.35-7.45)
[2019-02-01 07:06] LABS: CO2 Tension 70.3 mmHg (35.0-45.0); Puncture Site RRA
[2019-02-01 07:07] LABS: ALV-art Gradient 123.025 (0-20)
--- NOTE | 2019-02-01 07:52 | RAD ---
Portable frontal chest radiograph: 02/01/2019 COMPARISON: 01/31/2019 HISTORY: Ventilated patient FINDINGS: Stable endotracheal tube and nasogastric tube. Patchy nonspecific increased density noted i n both lung bases, left greater than right. Aeration within both lung bases has slightly worsened when compared to the prior exam. No pneumothorax seen. IMPRESSION: Stable lines and tubes as above. Hazy nonspecific increased density within both lung base s as detailed above.
[2019-02-01] MEDS: Sodium Chloride 0.9% 1,000 ML IV SCH ×2 (09:37→17:52)
[2019-02-01] MEDS: Enoxaparin Sodium 40 MG/0.4 ML SYRINGE SC SCH (09:59)
[2019-02-01] MEDS: Famotidine/PF 20 mg/2ml Vial SLOW IVP SCH ×2 (09:59→20:22)
[2019-02-01] MEDS: Citalopram 20 MG TAB PO SCH (09:59)
[2019-02-01] MEDS: cloNIDine 0.2 MG TAB PO SCH (09:59)
[2019-02-01] MEDS: Famotidine 20 MG TAB PO SCH ×2 (10:00→20:20)
--- NOTE | 2019-02-01 10:14 | PRG ---
DATE OF SERVICE: 02/01/2019 SUBJECTIVE: This morning, remains intubated in the vent. OBJECTIVE: VITAL SIGNS: Blood pressure 140/85, pulse 70, respirations 18. His I's and O's have been consistently ahead. GENERAL: He seems to be less agitated. CHEST: Decreased breath sounds. Prolonged expiration. CARDIAC: Sinus tach. ABDOMEN: Soft. LABORATORY DATA: Creatinine is normal. BUN is 48. Magnesium and phosphorus are normal. PO2 of 74, pCO2 of 70, pH . White count 10,000. IMAGING STUDIES: His chest x-ray today shows bibasilar atelectatic changes, left greater than right, possibly pneumonia. ASSESSMENT: Chronic obstructive pulmonary disease exacerbation, respiratory failure, vasculopathy, morbid obesity, probably sleep apnea, tobacco abuse. PLAN: Hold paralytics. Continue nutrition and PT. Hopefully, try to wean and extubate in the next 24 to 48 hours. One-half hour of critical time. Job ID: [id number]
[2019-02-01] MEDS: Verapamil 80 MG TAB PO SCH ×4 (10:19→20:23)
[2019-02-01] MEDS: Lorazepam 2 MG/ML VIAL SLOW IVP PRN ×2 (10:34→20:23)
--- NOTE | 2019-02-01 18:08 | PDOC.HOSPP ---
- Subjective Encounter Date: 02/01/19 Encounter Time: 09:45 Subjective: Mr. Epps was seen today in follow-up of COPD exacerbation. He is currently intubated, he will open his eyes to voice, but does not follow commands. He appears a bit agitated when the sedation is reduced. - Objective Vital Signs & Weight: Vital Signs (12 hours) Temp Pulse Resp BP Pulse Ox 02/01/19 16:55 65 162/94 H 02/01/19 16:54 64 11 L 99 02/01/19 16:00 16 02/01/19 15:23 66 153/94 H 02/01/19 15:19 65 13 99 02/01/19 14:00 13 02/01/19 13:02 68 174/100 H 02/01/19 13:01 68 16 99 02/01/19 12:00 13 02/01/19 10:31 80 162/102 H 02/01/19 10:30 80 16 97 02/01/19 10:00 13 02/01/19 09:59 157/87 H 02/01/19 08:00 98.2 F 13 99 02/01/19 06:52 75 141/85 H 02/01/19 06:46 75 14 96 Weight Admit Weight 233 lb 3.2 oz Weight 232 lb 12.93 oz Most Recent Monitor Data Heart Rate from ECG 68 NIBP 162/94 NIBP BP-Mean 116 Respiration from ECG 10 SpO2 98 I&O: 01/31/19 02/01/19 02/02/19 06:59 06:59 06:59 Intake Total 2881 3705.5 60 Output Total 1375 1630 135 Balance 1506 2075.5 -75 Result Diagrams: 02/01/19 04:05 02/01/19 04:09 Hospitalist ROS - Medication Medications: Active Medications Generic Name Dose Route Start Last Admin Trade Name Freq PRN Reason Stop Dose Admin Albuterol/Ipratropium 3 ml 01/30/19 15:00 02/01/19 16:54 Duoneb NEB 3 ml [id number] CARLOS Administration Budesonide 0.25 mg 01/30/19 14:30 02/01/19 15:24 Pulmicort Neb Solution INH 0.25 mg [id number] CARLOS Administration Citalopram Hydrobromide 40 mg 01/29/19 09:00 02/01/19 09:59 Celexa PO 40 mg DAILY CARLOS Administration Clonidine 0.1 mg 01/28/19 17:36 01/28/19 18:57 Catapres PO 0.1 mg Q4H PRN Administration SBP Greater Than 170 Clonidine 0.2 mg 01/29/19 09:00 02/01/19 09:59 Catapres PO 0.2 mg DAILY CARLOS Administration Enoxaparin Sodium 40 mg 01/31/19 09:00 02/01/19 09:59 Lovenox SC 40 mg 0900 CARLOS Administration Famotidine 20 mg 01/28/19 21:00 02/01/19 10:00 Pepcid PO Not Given BID CARLOS Famotidine 20 mg 01/29/19 09:00 02/01/19 09:59 Pepcid SLOW IVP 20 mg BID CARLOS Administration Hydralazine HCl 10 mg 01/28/19 17:36 01/28/19 20:28 Apresoline SLOW IVP 10 mg Q4H PRN Administration SBP > 180 and HR < 70 Ceftriaxone Sodium 1 gm/ 100 mls @ 200 mls/hr 01/28/19 23:30 01/31/19 23:42 Sodium Chloride IVPB 100 mls Q24HR CARLOS Administration Fentanyl Citrate 2,000 mcg/ 100 mls @ 0 mls/hr 01/28/19 23:24 02/01/19 01:31 Sodium Chloride IV 02/27/19 23:24 100 mls INF CARLOS Administration Protocol Per Protocol Sodium Chloride 1,000 mls @ 100 mls/hr 01/30/19 14:45 02/01/19 17:52 Normal Saline 0.9% IV 1,000 mls .Q10H CARLOS Administration Dexmedetomidine HCl 400 mcg/ 100 mls @ 0 mls/hr 02/01/19 10:30 02/01/19 17:47 Sodium Chloride IVPB 100 mls INF CARLOS Administration Protocol Per Protocol Lorazepam 2 mg 01/28/19 23:24 02/01/19 10:34 Ativan SLOW IVP 02/27/19 23:24 2 mg Q1H PRN Administration Breakthrough agitation Methylprednisolone Sodium Succinate 40 mg 01/28/19 18:00 02/01/19 17:52 Solu-Medrol IVP 40 mg Q6HR CARLOS Administration Mometasone Furoate/Formoterol Fumar 2 puff 01/28/19 18:30 02/01/19 06:52 Dulera 200 Mcg/5 Mcg Inhaler INH 2 puff BID-RT CARLOS Administration Montelukast Sodium 10 mg 01/28/19 21:00 01/31/19 21:15 Singulair PO 10 mg QPM CARLOS Administration Morphine Sulfate 2 mg 01/28/19 23:24 01/29/19 00:14 Morphine SLOW IVP 02/27/19 23:24 2 mg Q1H PRN Administration BREAKTHROUGH PAIN/Agitation Nicotine 14 mg 01/28/19 20:00 01/31/19 21:14 Nicoderm Patch TD 14 mg 2000 CARLOS Administration Propofol 1,000 mg 01/28/19 23:24 02/01/19 14:05 Diprivan IV 02/27/19 23:24 1,000 mg INF PRN Administration TO ACHIEVE GOAL RASS Protocol Sodium Chloride 10 ml 01/29/19 09:00 02/01/19 10:01 Flush - Normal Saline IVF 10 ml Q12HR CARLOS Administration Verapamil HCl 80 mg 01/29/19 17:00 02/01/19 17:52 Calan PO 80 mg QID CARLOS Administration - Exam Eye: PERRL, anicteric sclera Heart: RRR, no murmur, no gallops, no rubs, normal peripheral pulses Respiratory: no wheezes, no rales, no ronchi, normal chest expansion, wheezes ( bilaterally with long expiratory phase) Gastrointestinal: soft, non-tender, non-distended, normal bowel sounds, no palpable masses, no hepatomegaly, no splenomegaly Extremities: no cyanosis, no clubbing, 1+ LE edema Hosp A/P (1) Acute respiratory failure with hypoxia and hypercapnia Code(s): J96.01 - ACUTE RESPIRATORY FAILURE WITH HYPOXIA; J96.02 - ACUTE RESPIRATORY FAILURE WITH HYPERCAPNIA Status: Acute (2) COPD exacerbation Code(s): J44.1 - CHRONIC OBSTRUCTIVE PULMONARY DISEASE W (ACUTE) EXACERBATION Status: Acute (3) Hypertension Code(s): I10 - ESSENTIAL (PRIMARY) HYPERTENSION Status: Chronic - Plan * Acute on chronic respiratory failure with hypoxemia- he continues to require ventilator support * Continue to wean as per Pulmonary * Continue Neb, steroids, and long acting beta-agonist * HTN- blood pressure is stable * Nutritional support with tube feeds * GI and DVT prophylaxis
[2019-02-01] MEDS: Nicotine 14 MG PATCH TD SCH (20:22)
[2019-02-01] MEDS: Montelukast Sodium 10 mg Tablet PO SCH (20:23)
[2019-02-01] MEDS: cefTRIAXone\\ROCEPHIN 1 GM in Sodium Chloride 0.9% 100 ML IVPB SCH (23:03)
[2019-02-02] MEDS: Lorazepam 2 MG/ML VIAL SLOW IVP PRN ×2 (02:27→04:25)
[2019-02-02] MEDS: Budesonide 0.25 MG/2 ML NEB INH SCH ×6 (02:35→22:15)
[2019-02-02 03:09] LABS: Base Excess (BEa) 3.3 mEq/L (-2.0 to +3.0); Calcium, Ionized 1.23 mmol/L (1.12-1.30); Carboxyhemoglobin (COHb) 0.9 gm% (0.0-3.0); Hemoglobin (Hb) 14.1 g/dL (14.0-18.0); Potassium - ABG Lab 5.21 mmol/L (3.70-5.30)
[2019-02-02 03:28] LABS: pH, Arterial 7.19 (7.35-7.45)
[2019-02-02 03:29] LABS: ALV-art Gradient 38.175 (0-20); CO2 Tension 94.7 mmHg (35.0-45.0); Puncture Site RBR
[2019-02-02] MEDS: Rocuronium Bromide 10 MG/ML (10ML VIAL) IVPB PRN ×2 (03:34→05:15)
[2019-02-02] MEDS: Sodium Chloride 0.9% 1,000 ML IV SCH ×3 (03:38→23:24)
[2019-02-02] MEDS: Propofol 1,000 MG/100 ML VIAL IV PRN ×4 (05:07→21:51)
[2019-02-02] MEDS: methylPREDNISolone Sod Succ 40 MG VIAL IVP SCH ×4 (05:07→23:19)
[2019-02-02 06:00] LABS: #Eosinphils 0.1 thou/uL (0.0-0.7); #Lymphocytes 0.6 thou/uL (1.20-3.40); #Monocytes 0.6 thou/uL (0.11-0.59); #Neutrophils 7.9 thou/uL (1.40-6.50); %Eosinophils 0.6 % (0.0-10.0); %Lymphocytes 6.7 % (21.0-51.0); %Monocytes 6.8 % (0.0-10.0); Mean Corpuscular HGB CONC 33.2 g/dL (32.0-36.0); Mean Corpuscular Hemoglobin 31.4 pg (27.0-31.0); Mean Corpuscular Volume 94.5 fL (78.0-98.0); Mean Platelet Volume 7.9 fL (7.4-10.4); Platelet Count 135 thou/uL (130-400); RBC Distribution Width 12.8 % (11.5-14.5); Red Blood Cell (RBC) Count 4.15 mill/uL (4.70-6.10); White Blood Cell (WBC) Count 9.2 thou/uL (4.8-10.8)
[2019-02-02] MEDS: Mometasone/Formoterol 120 PUFF INHALER INH SCH ×2 (06:35→18:36)
[2019-02-02 06:50] LABS: Anion Gap 10 mmol/L (10-20); BUN (Urea Nitrogen) 44 mg/dL (8.4-25.7); Calc. Creatinine Clearance 142 mL/min (70-130); Calcium 8.5 mg/dL (7.8-10.44); Carbon Dioxide 34 mmol/L (23-31); Chloride 104 mmol/L (98-107); Estimated GFR-MDRD Greater than 90; Glucose 147 mg/dL (80-115); Sodium 143 mmol/L (136-145)
[2019-02-02 06:52] LABS: Actual Bicarbonate (HCO3a) 33.6 mEq/L (22-28); Base Excess (BEa) 4.5 mEq/L (-2.0 to +3.0); Calcium, Ionized 1.19 mmol/L (1.12-1.30); Hemoglobin (Hb) 13.3 g/dL (14.0-18.0); O2 Tension (PaO2) 76.5 mmHg (> 80.0); Potassium - ABG Lab 5.07 mmol/L (3.70-5.30); pH, Arterial 7.28 (7.35-7.45)
--- NOTE | 2019-02-02 07:35 | RAD ---
KUB: 02/02/2019 3:12 AM HISTORY: Abdominal distention, nasogastric tube FINDINGS: Nasogastric tube noted in the midline upper abdomen, distal tip overlying the region of the gastric fundus. Bowel gas pattern appears nonobstructed. Evaluation for bowel obstruction and free intraperitoneal air is limited on supine imaging. IMPRESSION: Nasogastric tube as above.
[2019-02-02 08:08] LABS: CO2 Tension 73.9 mmHg (35.0-45.0)
[2019-02-02 08:10] LABS: ALV-art Gradient 80.675 (0-20); Puncture Site RR
--- NOTE | 2019-02-02 08:35 | RAD ---
ABDOMEN 1 VIEW: Date: 02/02/19 HISTORY: Tube adjustment. FINDINGS: A NG tube is in place within the stomach. There is some gas in the stomach. Gas and fecal material, p articularly in the transverse colon. No overt calculus or bowel obstruction. IMPRESSION: Overall stable abdomen. POS: ESTEPHANIE
--- NOTE | 2019-02-02 08:42 | RAD ---
CHEST 1 VIEW: Date: 02/02/19 HISTORY: Peak airway pressures, respiratory insufficiency. COMPARISON: 02/01/19. FINDINGS: Endotracheal tube in satisfactory location. Monitor leads overlie the chest. NG tube in place. Poor i nspiration with some bilateral vascular congestion and some minimal increased markings in the infrahi lar regions and slight costophrenic angle blunting. IMPRESSION: Overall stable chest with some mild vascular congestion. Continue short-term follow-up. POS: YUMIKO
--- NOTE | 2019-02-02 08:45 | RAD ---
ABDOMEN 1 VIEW: Date: 02/02/19 HISTORY: Tube placement. FINDINGS: NG tube is noted well within the stomach. Gas and fecal material in the colon. No bowel obstruction. IMPRESSION: Satisfactory NG tube placement. No bowel obstruction or other acute process. POS: YUMIKO
[2019-02-02] MEDS: Citalopram 20 MG TAB PO SCH (09:42)
[2019-02-02] MEDS: Verapamil 80 MG TAB PO SCH ×4 (09:42→20:44)
[2019-02-02] MEDS: cloNIDine 0.2 MG TAB PO SCH (09:42)
[2019-02-02] MEDS: Enoxaparin Sodium 40 MG/0.4 ML SYRINGE SC SCH (09:42)
[2019-02-02] MEDS: Famotidine 20 MG TAB PO SCH ×2 (09:43→20:44)
[2019-02-02] MEDS: Famotidine/PF 20 mg/2ml Vial SLOW IVP SCH ×2 (09:43→20:43)
--- NOTE | 2019-02-02 10:37 | OP ---
DATE OF PROCEDURE: 02/02/2019 PROCEDURES PERFORMED: This morning, he underwent a diagnostic therapeutic bronchoscopy, bronchoscopy lavage. INDICATION: Retained secretions and peak pressures were elevated. DESCRIPTION OF PROCEDURE: After informed consent from the daughter, the brother was at the bedside. He was placed on 100% FiO2, switched to O2 bilevel, through which he tolerated. Tidal volumes up to 450. Adapter on the endotracheal tube. 20 mL of 1% lidocaine was infiltrated via the endotracheal tube. The flexible bronchoscope was passed. There was a large mucus plug sitting in the left mainstem bronchus, it was suctioned and lavaged until clear. The left upper and left lower lobes were visualized without any significant endobronchial obstruction, blood, or pus. Right lung was inspected thereafter. There was a small amount of pus in the right mainstem bronchus, which also suctioned and lavaged until clear. Thereafter, the right upper and right middle lobe were visualized without any additional obstruction, blood, or pus. The patient tolerated the procedure well. Job ID: [id number]
--- NOTE | 2019-02-02 10:37 | PRG ---
DATE OF SERVICE: 02/02/2019 SUBJECTIVE: This morning, he is sedated. He was given paralytic because his peak pressures went up. X-ray still shows no acute infiltrates. OBJECTIVE: VITAL SIGNS: Blood pressure 158/90, pulse 80, respiratory rate 18. CHEST: Diffuse wheezing prior to expiration. Sinus tach. ABDOMEN: Distended, but soft. LABORATORY STUDIES: PO2 of 76, pCO2 of 73, pH 7.28 on a rate of 10 and 35% for tidal volume. Lytes are normal. White count 9,000. IMPRESSION: Respiratory failure, chronic obstructive pulmonary disease, morbid obesity, sleep apnea, encephalopathy. PLAN: Continue nutrition, PT supportive care. I am going to do a diagnostic bronchoscopy and therapeutic bronchoscopy since his peak pressures are being elevated. Discussed with family. Prognosis is guarded. Day number 5, not weanable at this stage. One-half hour of critical care time. Job ID: [id number]
--- NOTE | 2019-02-02 14:40 | PDOC.HOSPP ---
- Subjective Encounter Date: 02/02/19 Encounter Time: 14:39 Subjective: Mr. Epps was seen today in follow-up of COPD exacerbation. He remains intubated. No new concerns. - Objective Vital Signs & Weight: Vital Signs (12 hours) Temp Pulse Resp BP Pulse Ox 02/02/19 14:28 68 10 L 100 02/02/19 14:25 68 167/89 H 02/02/19 14:00 14 02/02/19 12:18 67 10 L 99 02/02/19 12:00 97.9 F 10 L 02/02/19 10:55 65 152/97 H 02/02/19 10:53 65 10 L 100 02/02/19 09:42 159/91 H 02/02/19 09:20 68 20 99 02/02/19 09:00 98.0 F 02/02/19 08:45 100 02/02/19 08:00 10 L 02/02/19 06:40 67 142/83 H 02/02/19 06:39 65 16 99 02/02/19 06:37 65 16 99 02/02/19 06:35 65 17 98 02/02/19 06:00 10 L 02/02/19 04:26 72 143/77 H 02/02/19 04:00 10 L 02/02/19 03:35 76 110/78 Weight Admit Weight 233 lb 3.2 oz Weight 236 lb 12.423 oz Most Recent Monitor Data Heart Rate from ECG 65 NIBP 167/89 NIBP BP-Mean 115 Respiration from ECG 11 SpO2 100 I&O: 02/01/19 02/02/19 02/03/19 06:59 06:59 06:59 Intake Total 3705.5 3504 241.1 Output Total 1630 2203 885 Balance 2075.5 1301 -643.9 Result Diagrams: 02/02/19 05:30 02/02/19 05:30 Hospitalist ROS - Medication Medications: Active Medications Generic Name Dose Route Start Last Admin Trade Name Freq PRN Reason Stop Dose Admin Albuterol/Ipratropium 3 ml 01/30/19 15:00 02/02/19 14:28 Duoneb NEB 3 ml [id number] CARLOS Administration Budesonide 0.25 mg 01/30/19 14:30 02/02/19 14:29 Pulmicort Neb Solution INH 0.25 mg [id number] CARLOS Administration Citalopram Hydrobromide 40 mg 01/29/19 09:00 02/02/19 09:42 Celexa PO 40 mg DAILY CARLOS Administration Clonidine 0.1 mg 01/28/19 17:36 01/28/19 18:57 Catapres PO 0.1 mg Q4H PRN Administration SBP Greater Than 170 Clonidine 0.2 mg 01/29/19 09:00 02/02/19 09:42 Catapres PO 0.2 mg DAILY CARLOS Administration Enoxaparin Sodium 40 mg 01/31/19 09:00 02/02/19 09:42 Lovenox SC 40 mg 0900 CARLOS Administration Famotidine 20 mg 01/28/19 21:00 02/02/19 09:43 Pepcid PO Not Given BID CARLOS Famotidine 20 mg 01/29/19 09:00 02/02/19 09:43 Pepcid SLOW IVP 20 mg BID CARLOS Administration Hydralazine HCl 10 mg 01/28/19 17:36 01/28/19 20:28 Apresoline SLOW IVP 10 mg Q4H PRN Administration SBP > 180 and HR < 70 Ceftriaxone Sodium 1 gm/ 100 mls @ 200 mls/hr 01/28/19 23:30 02/01/19 23:03 Sodium Chloride IVPB 100 mls Q24HR CARLOS Administration Fentanyl Citrate 2,000 mcg/ 100 mls @ 0 mls/hr 01/28/19 23:24 02/01/19 21:57 Sodium Chloride IV 02/27/19 23:24 100 mls INF CARLOS Administration Protocol Per Protocol Sodium Chloride 1,000 mls @ 100 mls/hr 01/30/19 14:45 02/02/19 12:36 Normal Saline 0.9% IV 1,000 mls .Q10H CARLOS Administration Dexmedetomidine HCl 400 mcg/ 100 mls @ 0 mls/hr 02/01/19 10:30 02/02/19 11:57 Sodium Chloride IVPB 100 mls INF CARLOS Administration Protocol Per Protocol Lorazepam 2 mg 01/28/19 23:24 02/02/19 04:25 Ativan SLOW IVP 02/27/19 23:24 2 mg Q1H PRN Administration Breakthrough agitation Methylprednisolone Sodium Succinate 40 mg 01/28/19 18:00 02/02/19 12:35 Solu-Medrol IVP 40 mg Q6HR CARLOS Administration Mometasone Furoate/Formoterol Fumar 2 puff 01/28/19 18:30 02/02/19 06:35 Dulera 200 Mcg/5 Mcg Inhaler INH 2 puff BID-RT CARLOS Administration Montelukast Sodium 10 mg 01/28/19 21:00 02/01/19 20:23 Singulair PO 10 mg QPM CARLOS Administration Morphine Sulfate 2 mg 01/28/19 23:24 01/29/19 00:14 Morphine SLOW IVP 02/27/19 23:24 2 mg Q1H PRN Administration BREAKTHROUGH PAIN/Agitation Nicotine 14 mg 01/28/19 20:00 02/01/19 20:22 Nicoderm Patch TD 14 mg 2000 CARLOS Administration Propofol 1,000 mg 01/28/19 23:24 02/02/19 12:09 Diprivan IV 02/27/19 23:24 1,000 mg INF PRN Administration TO ACHIEVE GOAL RASS Protocol Quetiapine Fumarate 50 mg 02/01/19 21:00 02/01/19 20:23 Seroquel PO 50 mg HS CARLOS Administration Rocuronium [place] 60 mg 02/02/19 03:30 02/02/19 05:15 Zemuron IVPB 60 mg Q2H PRN Administration PARALYTIC Sodium Chloride 10 ml 01/29/19 09:00 02/02/19 09:45 Flush - Normal Saline IVF 10 ml Q12HR CARLOS Administration Verapamil HCl 80 mg 01/29/19 17:00 02/02/19 12:36 Calan PO 80 mg QID CARLOS Administration - Exam Eye: PERRL, anicteric sclera Heart: RRR, no murmur, no gallops, no rubs, normal peripheral pulses Respiratory: no rales, no ronchi, wheezes (+ long expiratory phase) Gastrointestinal: soft, non-tender, normal bowel sounds (+ mildly distended), no palpable masses, no hepatomegaly, no splenomegaly, no guarding, no rigidity Extremities: no cyanosis, no clubbing, no edema Skin: normal turgor, no lesions Hosp A/P (1) Acute respiratory failure with hypoxia and hypercapnia Code(s): J96.01 - ACUTE RESPIRATORY FAILURE WITH HYPOXIA; J96.02 - ACUTE RESPIRATORY FAILURE WITH HYPERCAPNIA Status: Acute (2) COPD exacerbation Code(s): J44.1 - CHRONIC OBSTRUCTIVE PULMONARY DISEASE W (ACUTE) EXACERBATION Status: Acute (3) Hypertension Code(s): I10 - ESSENTIAL (PRIMARY) HYPERTENSION Status: Chronic - Plan * Acute on chronic respiratory failure with hypoxemia- he continues to require ventilator support * He has been placed on Bi-level support. * Continue Neb, steroids, and long acting beta-agonist * HTN- blood pressure has been creeping up some- will monitor, may need to add or titrate his medications * Nutritional support - he has not been tolerating tube feeds well- could be constipation- Dulcolax as needed * GI and DVT prophylaxis
[2019-02-02] MEDS: fentaNYL Citrate/PF 2,000 MCG in Sodium Chloride 0.9% 60 ML IV SCH (15:27)
[2019-02-02] MEDS: hydrALAZINE 20 MG/ML VIAL SLOW IVP PRN (17:34)
[2019-02-02] MEDS: Montelukast Sodium 10 mg Tablet PO SCH (20:43)
[2019-02-02] MEDS: Nicotine 14 MG PATCH TD SCH (20:44)
[2019-02-02] MEDS: cefTRIAXone\\ROCEPHIN 1 GM in Sodium Chloride 0.9% 100 ML IVPB SCH (23:16)
[2019-02-02] MEDS: cloNIDine 0.1 MG TAB PO PRN (23:31)
[2019-02-03] MEDS: Rocuronium Bromide 10 MG/ML (10ML VIAL) IVPB PRN (00:26)
[2019-02-03] MEDS: hydrALAZINE 20 MG/ML VIAL SLOW IVP PRN ×3 (00:47→23:10)
[2019-02-03] MEDS: Budesonide 0.25 MG/2 ML NEB INH SCH ×6 (02:29→22:14)
[2019-02-03 04:00] LABS: Anion Gap 9 mmol/L (10-20); BUN (Urea Nitrogen) 38 mg/dL (8.4-25.7); Calc. Creatinine Clearance 155 mL/min (70-130); Calcium 8.4 mg/dL (7.8-10.44); Carbon Dioxide 34 mmol/L (23-31); Chloride 103 mmol/L (98-107); Estimated GFR-MDRD Greater than 90; Glucose 140 mg/dL (80-115); Potassium 4.8 mmol/L (3.5-5.1); Sodium 141 mmol/L (136-145)
[2019-02-03 04:02] LABS: Band 1 % (5-11); Hemoglobin 13.5 g/dL (14.0-18.0); Lymphocytes 5 % (21-51); MDiff Complete? YES; Mean Corpuscular Hemoglobin 30.6 pg (27.0-31.0); Mean Corpuscular Volume 92.7 fL (78.0-98.0); Mean Platelet Volume 7.8 fL (7.4-10.4); Monocytes 8 % (0-10); Neutrophil 86 % (42-75); Platelet Count 123 thou/uL (130-400); Platelet Morphology Comment Appears Adequate; RBC Distribution Width 12.8 % (11.5-14.5); Red Blood Cell (RBC) Count 4.41 mill/uL (4.70-6.10); White Blood Cell (WBC) Count 9.3 thou/uL (4.8-10.8)
[2019-02-03] MEDS: Propofol 1,000 MG/100 ML VIAL IV PRN ×5 (04:34→23:28)
[2019-02-03] MEDS: methylPREDNISolone Sod Succ 40 MG VIAL IVP SCH ×4 (06:31→23:08)
[2019-02-03] MEDS: Mometasone/Formoterol 120 PUFF INHALER INH SCH ×2 (07:01→18:49)
[2019-02-03 07:19] LABS: Actual Bicarbonate (HCO3a) 32.7 mEq/L (22-28); Base Excess (BEa) 6.5 mEq/L (-2.0 to +3.0); CO2 Tension 53.1 mmHg (35.0-45.0); Calcium, Ionized 1.17 mmol/L (1.12-1.30); Carboxyhemoglobin (COHb) 1.1 gm% (0.0-3.0); Hemoglobin (Hb) 13.9 g/dL (14.0-18.0); O2 Tension (PaO2) 99.5 mmHg (> 80.0); Potassium - ABG Lab 4.51 mmol/L (3.70-5.30); pH, Arterial 7.41 (7.35-7.45)
[2019-02-03 07:22] LABS: Puncture Site RR
[2019-02-03 07:23] LABS: ALV-art Gradient 83.675 (0-20)
[2019-02-03] MEDS ORDERED: cloNIDine 0.2 MG TAB PO SCH (09:00)
[2019-02-03] MEDS: Citalopram 20 MG TAB PO SCH (09:43)
[2019-02-03] MEDS: Verapamil 80 MG TAB PO SCH ×3 (09:44→20:09)
[2019-02-03] MEDS: Famotidine/PF 20 mg/2ml Vial SLOW IVP SCH ×2 (09:45→20:09)
[2019-02-03] MEDS: Enoxaparin Sodium 40 MG/0.4 ML SYRINGE SC SCH (09:45)
--- NOTE | 2019-02-03 09:59 | PRG ---
DATE OF SERVICE: 02/03/2019 SUBJECTIVE: This morning, remains intubated in the vent, remains still agitated. OBJECTIVE: VITAL SIGNS: Blood pressure is elevated at 170/88, pulse 80, respiratory rate 18, and saturations 99%. CHEST: Prolonged expiration and wheezing. CARDIAC: Sinus tach. ABDOMEN: Distended and soft. LABORATORY DATA: White count is normal. X-ray is relatively clear. A pO2 of 99, pCO2 53, pH 7.41 on bilevel. ASSESSMENT: Respiratory failure, chronic obstructive pulmonary disease, encephalopathy. PLAN: Try and avoid paralytics. Otherwise, continue supportive care and PT. One-half hour of critical care time. Job ID: [id number]
[2019-02-03] MEDS: Sodium Chloride 0.9% 1,000 ML IV SCH ×2 (12:16→22:31)
[2019-02-03] MEDS: Metoclopramide HCl 10 MG/2 ML VIAL IVP SCH ×2 (14:19→21:06)
--- NOTE | 2019-02-03 15:27 | PDOC.HOSPP ---
- Subjective Encounter Date: 02/03/19 Encounter Time: 10:20 Subjective: Mr. Epps was seen today. in follow-up of COPD exacerbation. He is intubated, and unresponsive at this time. - Objective Vital Signs & Weight: Vital Signs (12 hours) Temp Pulse Resp BP Pulse Ox 02/03/19 14:30 67 204/109 H 02/03/19 14:29 67 10 L 100 02/03/19 14:21 71 204/109 H 02/03/19 13:04 71 10 L 100 02/03/19 12:00 10 L 02/03/19 11:21 60 10 L 100 02/03/19 11:19 60 10 L 100 02/03/19 11:00 62 175/96 H 02/03/19 10:00 10 L 02/03/19 09:44 211/116 H 02/03/19 09:00 57 L 10 L 99 02/03/19 08:00 16 99 02/03/19 07:00 98.5 F 02/03/19 06:57 53 L 10 L 100 02/03/19 06:55 55 L 170/88 H 02/03/19 06:00 10 L 02/03/19 04:31 60 175/91 H 02/03/19 04:00 98.3 F 10 L Weight Admit Weight 233 lb 3.2 oz Weight 238 lb 8.642 oz Most Recent Monitor Data Heart Rate from ECG 70 NIBP 180/99 NIBP BP-Mean 126 Respiration from ECG 10 SpO2 100 I&O: 02/02/19 02/03/19 02/04/19 06:59 06:59 06:59 Intake Total 3504 3191.1 90 Output Total 2203 3411 1465 Balance 1301 -219.9 -1375 Result Diagrams: 02/03/19 03:30 02/03/19 03:30 Hospitalist ROS - Medication Medications: Active Medications Generic Name Dose Route Start Last Admin Trade Name Freq PRN Reason Stop Dose Admin Albuterol/Ipratropium 3 ml 01/30/19 15:00 02/03/19 14:29 Duoneb NEB 3 ml [id number] CARLOS Administration Budesonide 0.25 mg 01/30/19 14:30 02/03/19 13:06 Pulmicort Neb Solution INH 0.25 mg [id number] CARLOS Administration Citalopram Hydrobromide 40 mg 01/29/19 09:00 02/03/19 09:43 Celexa PO 40 mg DAILY CARLOS Administration Clonidine 0.1 mg 01/28/19 17:36 02/02/19 23:31 Catapres PO 0.1 mg Q4H PRN Administration SBP Greater Than 170 Clonidine 0.2 mg 02/03/19 09:00 02/03/19 09:44 Catapres PO 0.2 mg BID CARLOS Administration Enoxaparin Sodium 40 mg 01/31/19 09:00 02/03/19 09:45 Lovenox SC 40 mg 0900 CARLOS Administration Famotidine 20 mg 01/29/19 09:00 02/03/19 09:45 Pepcid SLOW IVP 20 mg BID CARLOS Administration Hydralazine HCl 10 mg 01/28/19 17:36 02/03/19 00:47 Apresoline SLOW IVP 10 mg Q4H PRN Administration SBP > 180 and HR < 70 Hydralazine HCl 20 mg 02/03/19 10:01 02/03/19 14:21 Apresoline SLOW IVP 20 mg Q6H PRN Administration Blood Pressure Ceftriaxone Sodium 1 gm/ 100 mls @ 200 mls/hr 01/28/19 23:30 02/02/19 23:16 Sodium Chloride IVPB 100 mls Q24HR CARLOS Administration Fentanyl Citrate 2,000 mcg/ 100 mls @ 0 mls/hr 01/28/19 23:24 02/02/19 15:27 Sodium Chloride IV 02/27/19 23:24 100 mls INF CARLOS Administration Protocol Per Protocol Sodium Chloride 1,000 mls @ 100 mls/hr 01/30/19 14:45 02/03/19 12:16 Normal Saline 0.9% IV 1,000 mls .Q10H CARLOS Administration Dexmedetomidine HCl 400 mcg/ 100 mls @ 0 mls/hr 02/01/19 10:30 02/03/19 14:21 Sodium Chloride IVPB 100 mls INF CARLOS Administration Protocol Per Protocol Lorazepam 2 mg 01/28/19 23:24 02/02/19 04:25 Ativan SLOW IVP 02/27/19 23:24 2 mg Q1H PRN Administration Breakthrough agitation Methylprednisolone Sodium Succinate 40 mg 01/28/19 18:00 02/03/19 12:16 Solu-Medrol IVP 40 mg Q6HR CARLOS Administration Metoclopramide HCl 10 mg 02/03/19 14:00 02/03/19 14:19 Reglan IVP 10 mg Q8HR CARLOS Administration Mometasone Furoate/Formoterol Fumar 2 puff 01/28/19 18:30 02/03/19 07:01 Dulera 200 Mcg/5 Mcg Inhaler INH 2 puff BID-RT CARLOS Administration Montelukast Sodium 10 mg 01/28/19 21:00 02/02/19 20:43 Singulair PO 10 mg QPM CARLOS Administration Morphine Sulfate 2 mg 01/28/19 23:24 01/29/19 00:14 Morphine SLOW IVP 02/27/19 23:24 2 mg Q1H PRN Administration BREAKTHROUGH PAIN/Agitation Propofol 1,000 mg 01/28/19 23:24 02/03/19 14:21 Diprivan IV 02/27/19 23:24 1,000 mg INF PRN Administration TO ACHIEVE GOAL RASS Protocol Quetiapine Fumarate 50 mg 02/01/19 21:00 02/02/19 20:43 Seroquel PO 50 mg HS CARLOS Administration Rocuronium [place] 60 mg 02/02/19 03:30 02/03/19 00:26 Zemuron IVPB 60 mg Q2H PRN Administration PARALYTIC Sodium Chloride 10 ml 01/29/19 09:00 02/03/19 09:46 Flush - Normal Saline IVF 10 ml Q12HR CARLOS Administration Verapamil HCl 80 mg 02/03/19 09:00 02/03/19 09:44 Calan PO 80 mg TID CARLOS Administration - Exam Eye: PERRL, anicteric sclera Heart: RRR, no murmur, no gallops, no rubs, normal peripheral pulses Respiratory: CTAB, no rales, no ronchi, normal chest expansion, wheezes ( prolonged expiratory phase) Gastrointestinal: soft, non-tender, non-distended, normal bowel sounds, no palpable masses, no hepatomegaly, no splenomegaly, no bruit, no guarding Extremities: no cyanosis, no clubbing, no edema Hosp A/P (1) Acute respiratory failure with hypoxia and hypercapnia Code(s): J96.01 - ACUTE RESPIRATORY FAILURE WITH HYPOXIA; J96.02 - ACUTE RESPIRATORY FAILURE WITH HYPERCAPNIA Status: Acute (2) COPD exacerbation Code(s): J44.1 - CHRONIC OBSTRUCTIVE PULMONARY DISEASE W (ACUTE) EXACERBATION Status: Acute (3) Hypertension Code(s): I10 - ESSENTIAL (PRIMARY) HYPERTENSION Status: Chronic - Plan * Acute on chronic respiratory failure with hypoxemia- he continues to require ventilator support * Continue to slowly wean as tolerated * Continue Neb, steroids, and long acting beta-agonist * HTN- blood pressure elevated- clonidine has been increased, and will add Hydralazine scheduled as well * Nutritional support - continue Tube feeds * GI and DVT prophylaxis
[2019-02-03] MEDS: Lorazepam 2 MG/ML VIAL SLOW IVP PRN ×2 (16:14→20:37)
[2019-02-03] MEDS: cloNIDine 0.1 MG TAB PO PRN (16:15)
[2019-02-03] MEDS: cloNIDine 0.2 MG TAB PO SCH (20:08)
[2019-02-03] MEDS: hydrALAZINE 25 MG TAB PO SCH (20:08)
[2019-02-03] MEDS: Montelukast Sodium 10 mg Tablet PO SCH (20:09)
[2019-02-03] MEDS: cefTRIAXone\\ROCEPHIN 1 GM in Sodium Chloride 0.9% 100 ML IVPB SCH (23:06)
[2019-02-04] MEDS: Budesonide 0.25 MG/2 ML NEB INH SCH ×6 (02:31→22:54)
[2019-02-04 04:08] LABS: #Eosinphils 0.1 thou/uL (0.0-0.7); #Lymphocytes 0.8 thou/uL (1.20-3.40); #Monocytes 0.7 thou/uL (0.11-0.59); #Neutrophils 8.3 thou/uL (1.40-6.50); %Basophils 0.1 % (0.0-1.0); %Eosinophils 0.6 % (0.0-10.0); %Monocytes 6.8 % (0.0-10.0); %Neutrophils 84.6 % (42.0-75.0); Hemoglobin 13.6 g/dL (14.0-18.0); Mean Corpuscular HGB CONC 33.9 g/dL (32.0-36.0); Mean Corpuscular Hemoglobin 30.8 pg (27.0-31.0); Mean Corpuscular Volume 90.8 fL (78.0-98.0); Platelet Count 115 thou/uL (130-400); RBC Distribution Width 12.7 % (11.5-14.5); Red Blood Cell (RBC) Count 4.42 mill/uL (4.70-6.10); White Blood Cell (WBC) Count 9.8 thou/uL (4.8-10.8)
[2019-02-04 04:14] LABS: Anion Gap 8 mmol/L (10-20); BUN (Urea Nitrogen) 29 mg/dL (8.4-25.7); Calc. Creatinine Clearance 167 mL/min (70-130); Calcium 8.1 mg/dL (7.8-10.44); Carbon Dioxide 31 mmol/L (23-31); Chloride 101 mmol/L (98-107); Estimated GFR-MDRD Greater than 90; Glucose 133 mg/dL (80-115); Potassium 4.4 mmol/L (3.5-5.1); Sodium 136 mmol/L (136-145)
[2019-02-04] MEDS: Propofol 1,000 MG/100 ML VIAL IV PRN ×3 (04:43→20:48)
[2019-02-04] MEDS: Sodium Chloride 0.9% 1,000 ML IV SCH ×3 (04:53→22:20)
[2019-02-04] MEDS: Metoclopramide HCl 10 MG/2 ML VIAL IVP SCH ×3 (05:00→21:59)
[2019-02-04] MEDS: methylPREDNISolone Sod Succ 40 MG VIAL IVP SCH ×4 (05:00→23:25)
[2019-02-04] MEDS: Mometasone/Formoterol 120 PUFF INHALER INH SCH ×2 (07:25→18:34)
[2019-02-04 07:48] LABS: Base Excess (BEa) 3.2 mEq/L (-2.0 to +3.0); CO2 Tension 38.5 mmHg (35.0-45.0); Calcium, Ionized 1.16 mmol/L (1.12-1.30); Carboxyhemoglobin (COHb) 0.9 gm% (0.0-3.0); Hemoglobin (Hb) 13.6 g/dL (14.0-18.0); O2 Tension (PaO2) 93.5 mmHg (> 80.0); Potassium - ABG Lab 4.46 mmol/L (3.70-5.30); pH, Arterial 7.46 (7.35-7.45)
[2019-02-04 07:49] LABS: Puncture Site RR
[2019-02-04 07:50] LABS: ALV-art Gradient 72.275 (0-20)
--- NOTE | 2019-02-04 08:57 | PRG ---
DATE OF SERVICE: 02/04/2019 SUBJECTIVE: Marcos Epps, this morning, is still intubated in the vent, sedated. OBJECTIVE: VITAL SIGNS: His blood pressure is 178/66, pulse 58, saturations 100%, respirations 16. GENERAL: Sedated on Precedex and Diprivan. . CHEST: Still prolonged expiration. Bilateral wheezing. CARDIAC: Normal S1 and S2. No gallop. ABDOMEN: Soft. LABORATORY DATA: White count 9000, H and H of 13 and 40, and platelet count is low at 115. Lytes are normal. Glucose is unremarkable. IMPRESSION: 1. Respiratory failure, chronic obstructive pulmonary disease. 2. Metabolic encephalopathy. 3. Hypertension. 4. Tobacco abuse. 5. Possibly alcohol abuse. PLAN: Until the patient's encephalopathy improves, he is probably not going to be weanable. We still got him on frequent neb treatments, steroids, etc. We will follow. One-half hour of critical care time. Job ID: [id number]
[2019-02-04] MEDS: Famotidine/PF 20 mg/2ml Vial SLOW IVP SCH ×2 (09:04→21:02)
[2019-02-04] MEDS: hydrALAZINE 25 MG TAB PO SCH ×2 (09:04→21:03)
[2019-02-04] MEDS: Citalopram 20 MG TAB PO SCH (09:05)
[2019-02-04] MEDS: Verapamil 80 MG TAB PO SCH ×3 (09:05→21:03)
[2019-02-04] MEDS: Enoxaparin Sodium 40 MG/0.4 ML SYRINGE SC SCH (09:06)
[2019-02-04] MEDS: ALPRAZolam 0.25 MG TAB PO SCH ×3 (09:10→21:03)
[2019-02-04] MEDS: cloNIDine 0.2 MG TAB PO SCH ×3 (09:11→21:02)
--- NOTE | 2019-02-04 18:34 | PDOC.HOSPP ---
- Subjective Encounter Date: 02/04/19 Encounter Time: 10:00 Subjective: Mr. Epps was seen today in follow-up of COPD exacerbation. He remains intubated , with mild sedation. He still does not follow commands. - Objective Vital Signs & Weight: Vital Signs (12 hours) Temp Pulse Resp BP Pulse Ox 02/04/19 16:16 77 11 L 97 02/04/19 16:00 98.4 F 10 L 02/04/19 14:43 94 159/80 H 02/04/19 14:42 79 16 97 02/04/19 14:27 159/80 H 02/04/19 14:00 98.4 F 10 L 02/04/19 12:59 64 11 L 100 02/04/19 12:00 10 L 02/04/19 10:12 84 140/81 02/04/19 10:08 78 10 L 100 02/04/19 10:00 21 H 02/04/19 09:11 213/128 H 02/04/19 09:04 79 213/128 H 02/04/19 08:45 100 02/04/19 08:00 98.6 F 10 L 02/04/19 07:29 63 174/97 H 02/04/19 07:25 61 10 L 100 Weight Admit Weight 233 lb 3.2 oz Weight 236 lb 5.369 oz Most Recent Monitor Data Heart Rate from ECG 64 NIBP 135/77 NIBP BP-Mean 96 Respiration from ECG 12 SpO2 100 I&O: 02/03/19 02/04/19 02/05/19 06:59 06:59 06:59 Intake Total 3191.1 3613 607 Output Total 1461 4940 2900 Balance -219.9 -1327 -2293 Result Diagrams: 02/04/19 03:30 02/04/19 03:30 Hospitalist ROS - Medication Medications: Active Medications Generic Name Dose Route Start Last Admin Trade Name Freq PRN Reason Stop Dose Admin Albuterol/Ipratropium 3 ml 02/04/19 10:00 02/04/19 16:16 Duoneb NEB 3 ml [id number] CARLOS Administration Alprazolam 0.25 mg 02/04/19 09:00 02/04/19 14:27 Xanax PO 0.25 mg TID CARLOS Administration Budesonide 0.25 mg 01/30/19 14:30 02/04/19 14:42 Pulmicort Neb Solution INH 0.25 mg [id number] CARLOS Administration Citalopram Hydrobromide 40 mg 01/29/19 09:00 02/04/19 09:05 Celexa PO 40 mg DAILY CARLOS Administration Clonidine 0.1 mg 01/28/19 17:36 02/03/19 16:15 Catapres PO 0.1 mg Q4H PRN Administration SBP Greater Than 170 Clonidine 0.2 mg 02/03/19 21:00 02/04/19 14:27 Catapres PO 0.2 mg TID CARLOS Administration Enoxaparin Sodium 40 mg 01/31/19 09:00 02/04/19 09:06 Lovenox SC 40 mg 899 CARLOS Administration Famotidine 20 mg 01/29/19 09:00 02/04/19 09:04 Pepcid SLOW IVP 20 mg BID CARLOS Administration Hydralazine HCl 20 mg 02/03/19 10:01 02/03/19 23:10 Apresoline SLOW IVP 20 mg Q6H PRN Administration Blood Pressure Hydralazine HCl 75 mg 02/03/19 21:00 02/04/19 09:04 Apresoline PO 75 mg BID CARLOS Administration Ceftriaxone Sodium 1 gm/ 100 mls @ 200 mls/hr 01/28/19 23:30 02/03/19 23:06 Sodium Chloride IVPB 100 mls Q24HR CARLOS Administration Fentanyl Citrate 2,000 mcg/ 100 mls @ 0 mls/hr 01/28/19 23:24 02/02/19 15:27 Sodium Chloride IV 02/27/19 23:24 100 mls INF CARLOS Administration Protocol Per Protocol Sodium Chloride 1,000 mls @ 100 mls/hr 01/30/19 14:45 02/04/19 12:48 Normal Saline 0.9% IV 1,000 mls .Q10H CARLOS Administration Dexmedetomidine HCl 400 mcg/ 100 mls @ 0 mls/hr 02/01/19 10:30 02/04/19 06:42 Sodium Chloride IVPB 100 mls INF CARLOS Administration Protocol Per Protocol Lorazepam 2 mg 01/28/19 23:24 02/03/19 20:37 Ativan SLOW IVP 02/27/19 23:24 2 mg Q1H PRN Administration Breakthrough agitation Methylprednisolone Sodium Succinate 40 mg 01/28/19 18:00 02/04/19 17:16 Solu-Medrol IVP 40 mg Q6HR CARLOS Administration Metoclopramide HCl 10 mg 02/03/19 14:00 02/04/19 14:27 Reglan IVP 10 mg Q8HR CARLOS Administration Mometasone Furoate/Formoterol Fumar 2 puff 01/28/19 18:30 02/04/19 07:25 Dulera 200 Mcg/5 Mcg Inhaler INH 2 puff BID-RT CARLOS Administration Montelukast Sodium 10 mg 01/28/19 21:00 02/03/19 20:09 Singulair PO 10 mg QPM CARLOS Administration Morphine Sulfate 2 mg 01/28/19 23:24 01/29/19 00:14 Morphine SLOW IVP 02/27/19 23:24 2 mg Q1H PRN Administration BREAKTHROUGH PAIN/Agitation Propofol 1,000 mg 01/28/19 23:24 02/04/19 04:43 Diprivan IV 02/27/19 23:24 1,000 mg INF PRN Administration TO ACHIEVE GOAL RASS Protocol Quetiapine Fumarate 50 mg 02/01/19 21:00 02/03/19 20:09 Seroquel PO 50 mg HS CARLOS Administration Rocuronium [place] 60 mg 02/02/19 03:30 02/03/19 00:26 Zemuron IVPB 60 mg Q2H PRN Administration PARALYTIC Sodium Chloride 10 ml 01/29/19 09:00 02/04/19 09:07 Flush - Normal Saline IVF Not Given Q12HR CARLOS Verapamil HCl 80 mg 02/03/19 09:00 02/04/19 14:33 Calan PO 80 mg TID CARLOS Administration - Exam Eye: PERRL, anicteric sclera Heart: RRR, no murmur, no gallops, no rubs, normal peripheral pulses Respiratory: normal chest expansion, wheezes (And course breath sounds) Gastrointestinal: soft, non-tender, non-distended, normal bowel sounds, no palpable masses, no hepatomegaly, no splenomegaly Extremities: 1+ LE edema Hosp A/P (1) Acute respiratory failure with hypoxia and hypercapnia Code(s): J96.01 - ACUTE RESPIRATORY FAILURE WITH HYPOXIA; J96.02 - ACUTE RESPIRATORY FAILURE WITH HYPERCAPNIA Status: Acute (2) COPD exacerbation Code(s): J44.1 - CHRONIC OBSTRUCTIVE PULMONARY DISEASE W (ACUTE) EXACERBATION Status: Acute (3) Hypertension Code(s): I10 - ESSENTIAL (PRIMARY) HYPERTENSION Status: Chronic - Plan * Acute on chronic respiratory failure - continue slow wena from the vent * Continue Neb, steroids, and long acting beta-agonist * HTN- blood pressure - is beginning to trend down * Nutritional support - continue Tube feeds * GI and DVT prophylaxis
[2019-02-04] MEDS: Montelukast Sodium 10 mg Tablet PO SCH (21:03)
[2019-02-04] MEDS: cefTRIAXone\\ROCEPHIN 1 GM in Sodium Chloride 0.9% 100 ML IVPB SCH (23:25)
[2019-02-05] MEDS: Propofol 1,000 MG/100 ML VIAL IV PRN ×3 (01:49→23:02)
[2019-02-05] MEDS: Budesonide 0.25 MG/2 ML NEB INH SCH ×6 (02:51→22:29)
[2019-02-05 04:53] LABS: #Basophils 0.1 thou/uL (0.0-0.2); #Eosinphils 0.1 thou/uL (0.0-0.7); #Monocytes 0.7 thou/uL (0.11-0.59); #Neutrophils 10.6 thou/uL (1.40-6.50); %Basophils 0.5 % (0.0-1.0); %Eosinophils 0.5 % (0.0-10.0); %Lymphocytes 8.2 % (21.0-51.0); %Monocytes 5.6 % (0.0-10.0); %Neutrophils 85.2 % (42.0-75.0); Mean Corpuscular HGB CONC 33.9 g/dL (32.0-36.0); Mean Corpuscular Hemoglobin 30.6 pg (27.0-31.0); Mean Corpuscular Volume 90.3 fL (78.0-98.0); Mean Platelet Volume 8.2 fL (7.4-10.4); Platelet Count 112 thou/uL (130-400); RBC Distribution Width 12.7 % (11.5-14.5); Red Blood Cell (RBC) Count 4.58 mill/uL (4.70-6.10); White Blood Cell (WBC) Count 12.5 thou/uL (4.8-10.8)
[2019-02-05 05:02] LABS: Anion Gap 9 mmol/L (10-20); BUN (Urea Nitrogen) 27 mg/dL (8.4-25.7); Calc. Creatinine Clearance 166 mL/min (70-130); Calcium 8.5 mg/dL (7.8-10.44); Carbon Dioxide 30 mmol/L (23-31); Chloride 99 mmol/L (98-107); Estimated GFR-MDRD Greater than 90; Glucose 178 mg/dL (80-115); Potassium 4.4 mmol/L (3.5-5.1); Sodium 134 mmol/L (136-145)
[2019-02-05] MEDS: Metoclopramide HCl 10 MG/2 ML VIAL IVP SCH ×3 (05:53→23:02)
[2019-02-05] MEDS: methylPREDNISolone Sod Succ 40 MG VIAL IVP SCH ×4 (05:53→23:24)
[2019-02-05] MEDS: Mometasone/Formoterol 120 PUFF INHALER INH SCH ×2 (07:23→19:11)
--- NOTE | 2019-02-05 07:28 | RAD ---
CHEST ONE VIEW: INDICATIONS: Intubation. COMPARISON: Prior exam dated 02/02/2019. FINDINGS/IMPRESSION: The patient remains intubated with gastric catheter placement. There are patchy air space opacities a long both lower lobes, which are more prominent than seen on the prior examination, some of which may be related to poor inspiration and bibasilar atelectasis. A repeat chest radiograph may be helpful w ith improved inspiration to exclude the presence of bibasilar pneumonia or aspiration. No pneumothora x is evident. POS: BH
[2019-02-05 07:48] LABS: Actual Bicarbonate (HCO3a) 26.1 mEq/L (22-28); Base Excess (BEa) 2.1 mEq/L (-2.0 to +3.0); CO2 Tension 38.6 mmHg (35.0-45.0); Calcium, Ionized 1.18 mmol/L (1.12-1.30); Carboxyhemoglobin (COHb) 1.5 gm% (0.0-3.0); Hemoglobin (Hb) 14.3 g/dL (14.0-18.0); O2 Tension (PaO2) 73.5 mmHg (> 80.0); Potassium - ABG Lab 4.32 mmol/L (3.70-5.30); pH, Arterial 7.45 (7.35-7.45)
[2019-02-05 07:51] LABS: Puncture Site L.R.
[2019-02-05] MEDS: Enoxaparin Sodium 40 MG/0.4 ML SYRINGE SC SCH (08:51)
[2019-02-05] MEDS: cloNIDine 0.2 MG TAB PO SCH ×3 (08:51→20:43)
[2019-02-05] MEDS: Citalopram 20 MG TAB PO SCH (08:52)
[2019-02-05] MEDS: hydrALAZINE 25 MG TAB PO SCH ×2 (08:53→20:43)
[2019-02-05] MEDS: Verapamil 80 MG TAB PO SCH ×3 (08:53→20:46)
[2019-02-05] MEDS: ALPRAZolam 0.25 MG TAB PO SCH ×3 (08:53→20:43)
[2019-02-05] MEDS: Famotidine/PF 20 mg/2ml Vial SLOW IVP SCH ×2 (08:54→20:43)
[2019-02-05] MEDS: Sodium Chloride 0.9% 1,000 ML IV SCH (09:14)
--- NOTE | 2019-02-05 11:01 | PRG ---
DATE OF SERVICE: 02/05/2019 TIME SPENT: 35 minutes critical time. SUBJECTIVE: The patient remains intubated on mechanical ventilation. He is awake. He is following commands. He is very discouraged about being intubated. OBJECTIVE: VITAL SIGNS: Temperature 98.4, pulse 58, blood pressure 150/86. He is currently on Precedex and propofol. HEENT: Unremarkable. NECK: No adenopathy or JVD. LUNGS: Diffuse mild wheezing bilaterally. CARDIAC: S1, S2. Regular. ABDOMEN: Soft. EXTREMITIES: No edema. LABORATORY DATA: ABG; pH 7.45, pCO2 of 38, pO2 of 73 on bilevel 28/5 with FiO2 of 30% and a rate of 10. White blood cell count 4.5, hematocrit 41.3, and platelet count 112. Sodium 134, potassium 4.4, chloride 99, CO2 of 30, BUN 27, creatinine 0.7, glucose 178. His chest x-ray demonstrates a tortuous airway, but fairly clear lung araujo. ASSESSMENT: 1. Chronic obstructive pulmonary disease with exacerbation. 2. Acute respiratory failure requiring mechanical ventilation. 3. Improved encephalopathy. 4. Tobacco abuse. PLAN: 1. I will go ahead and stop his IV fluids. 2. I am trying him on spontaneous respirations, although I am not sure he is quite to the point where he can be extubated. 3. Decrease breathing treatments every 4 hours. 4. Continue enteral tube feeds. 5. Discussed with his daughter at bedside. Job ID: [id number]
[2019-02-05] MEDS: hydrALAZINE 20 MG/ML VIAL SLOW IVP PRN (11:33)
--- NOTE | 2019-02-05 17:21 | PDOC.HOSPP ---
- Subjective Encounter Date: 02/05/19 Encounter Time: 10:20 Subjective: Mr. Epps was seen today in follow-up of COPD exacerbation. He remains intubated. He is more alert. he appears more focused. - Objective Vital Signs & Weight: Vital Signs (12 hours) Temp Pulse Resp BP Pulse Ox 02/05/19 16:00 100.0 F H 12 02/05/19 15:37 88 167/98 H 02/05/19 15:13 86 167/98 H 02/05/19 15:12 93 18 98 02/05/19 15:10 93 18 98 02/05/19 14:36 172/100 H 02/05/19 14:00 21 H 02/05/19 13:43 85 183/94 H 02/05/19 12:00 98.6 F 16 02/05/19 11:33 90 180/103 H 02/05/19 10:18 88 177/80 H 02/05/19 10:15 94 21 H 99 02/05/19 10:14 89 18 99 02/05/19 10:00 10 L 02/05/19 08:53 71 158/87 H 02/05/19 08:51 158/87 H 02/05/19 08:00 98.4 F 10 L 02/05/19 07:24 48 L 160/95 H 02/05/19 07:22 49 L 11 L 100 02/05/19 07:21 49 L 11 L 100 02/05/19 06:00 10 L Weight Admit Weight 233 lb 3.2 oz Weight 232 lb 11.2 oz Most Recent Monitor Data Heart Rate from ECG 70 NIBP 135/77 NIBP BP-Mean 96 Respiration from ECG 18 SpO2 98 I&O: 02/04/19 02/05/19 02/06/19 06:59 06:59 06:59 Intake Total 8008 5900 5435 Output Total 6326 9654 2015 Balance -2516 -5905 -1652 Result Diagrams: 02/05/19 04:15 02/05/19 04:15 Hospitalist ROS - Medication Medications: Active Medications Generic Name Dose Route Start Last Admin Trade Name Freq PRN Reason Stop Dose Admin Albuterol/Ipratropium 3 ml 02/05/19 10:30 02/05/19 15:10 Duoneb NEB 3 ml [id number] CARLOS Administration Alprazolam 0.25 mg 02/04/19 09:00 02/05/19 14:36 Xanax PO 0.25 mg TID CARLOS Administration Budesonide 0.25 mg 01/30/19 14:30 02/05/19 15:12 Pulmicort Neb Solution INH 0.25 mg [id number] CARLOS Administration Citalopram Hydrobromide 40 mg 01/29/19 09:00 02/05/19 08:52 Celexa PO 40 mg DAILY CARLOS Administration Clonidine 0.1 mg 01/28/19 17:36 02/03/19 16:15 Catapres PO 0.1 mg Q4H PRN Administration SBP Greater Than 170 Clonidine 0.2 mg 02/03/19 21:00 02/05/19 14:36 Catapres PO 0.2 mg TID CARLOS Administration Enoxaparin Sodium 40 mg 01/31/19 09:00 02/05/19 08:51 Lovenox SC 40 mg 0900 CARLOS Administration Famotidine 20 mg 01/29/19 09:00 02/05/19 08:54 Pepcid SLOW IVP 20 mg BID CARLOS Administration Hydralazine HCl 20 mg 02/03/19 10:01 02/05/19 11:33 Apresoline SLOW IVP 20 mg Q6H PRN Administration Blood Pressure Hydralazine HCl 75 mg 02/03/19 21:00 02/05/19 08:53 Apresoline PO 75 mg BID CARLOS Administration Ceftriaxone Sodium 1 gm/ 100 mls @ 200 mls/hr 01/28/19 23:30 02/04/19 23:25 Sodium Chloride IVPB 100 mls Q24HR CARLOS Administration Fentanyl Citrate 2,000 mcg/ 100 mls @ 0 mls/hr 01/28/19 23:24 02/02/19 15:27 Sodium Chloride IV 02/27/19 23:24 100 mls INF CARLOS Administration Protocol Per Protocol Dexmedetomidine HCl 400 mcg/ 100 mls @ 0 mls/hr 02/01/19 10:30 02/05/19 10:11 Sodium Chloride IVPB 100 mls INF CARLOS Administration Protocol Per Protocol Lorazepam 2 mg 01/28/19 23:24 02/03/19 20:37 Ativan SLOW IVP 02/27/19 23:24 2 mg Q1H PRN Administration Breakthrough agitation Methylprednisolone Sodium Succinate 40 mg 01/28/19 18:00 02/05/19 11:34 Solu-Medrol IVP 40 mg Q6HR CARLOS Administration Metoclopramide HCl 10 mg 02/03/19 14:00 02/05/19 14:36 Reglan IVP 10 mg Q8HR CARLOS Administration Mometasone Furoate/Formoterol Fumar 2 puff 01/28/19 18:30 02/05/19 07:23 Dulera 200 Mcg/5 Mcg Inhaler INH 2 puff BID-RT CARLOS Administration Montelukast Sodium 10 mg 01/28/19 21:00 02/04/19 21:03 Singulair PO 10 mg QPM CARLOS Administration Morphine Sulfate 2 mg 01/28/19 23:24 01/29/19 00:14 Morphine SLOW IVP 02/27/19 23:24 2 mg Q1H PRN Administration BREAKTHROUGH PAIN/Agitation Propofol 1,000 mg 01/28/19 23:24 02/05/19 01:49 Diprivan IV 02/27/19 23:24 1,000 mg INF PRN Administration TO ACHIEVE GOAL RASS Protocol Quetiapine Fumarate 50 mg 02/01/19 21:00 02/04/19 21:03 Seroquel PO 50 mg HS CARLOS Administration Sodium Chloride 10 ml 01/29/19 09:00 02/05/19 08:54 Flush - Normal Saline IVF 10 ml Q12HR CARLOS Administration Verapamil HCl 80 mg 02/03/19 09:00 02/05/19 14:36 Calan PO 80 mg TID CARLOS Administration - Exam Eye: PERRL Heart: RRR, no murmur, no gallops, no rubs, normal peripheral pulses Respiratory: no rales, no ronchi, wheezes (some bilateral wheezing) Gastrointestinal: soft, non-tender, non-distended, normal bowel sounds, no palpable masses, no hepatomegaly Extremities: no cyanosis, no clubbing, 1+ LE edema Hosp A/P (1) Acute respiratory failure with hypoxia and hypercapnia Code(s): J96.01 - ACUTE RESPIRATORY FAILURE WITH HYPOXIA; J96.02 - ACUTE RESPIRATORY FAILURE WITH HYPERCAPNIA Status: Acute (2) COPD exacerbation Code(s): J44.1 - CHRONIC OBSTRUCTIVE PULMONARY DISEASE W (ACUTE) EXACERBATION Status: Acute (3) Hypertension Code(s): I10 - ESSENTIAL (PRIMARY) HYPERTENSION Status: Chronic - Plan * Acute on chronic respiratory failure - a trial at weaning is in progress * Continue Neb, steroids, and long acting beta-agonist * HTN- blood pressure - better over the past few days * Nutritional support - continue Tube feeds * GI and DVT prophylaxis * Daughter is a bedside and questions answered
[2019-02-05] MEDS: Montelukast Sodium 10 mg Tablet PO SCH (20:44)
[2019-02-05] MEDS: cefTRIAXone\\ROCEPHIN 1 GM in Sodium Chloride 0.9% 100 ML IVPB SCH (23:21)
[2019-02-06] MEDS: Propofol 1,000 MG/100 ML VIAL IV PRN (03:25)
[2019-02-06] MEDS: Budesonide 0.25 MG/2 ML NEB INH SCH ×6 (03:38→22:19)
[2019-02-06 04:42] LABS: #Lymphocytes 0.7 thou/uL (1.20-3.40); #Monocytes 0.4 thou/uL (0.11-0.59); #Neutrophils 11.7 thou/uL (1.40-6.50); %Basophils 0.1 % (0.0-1.0); %Eosinophils 0.4 % (0.0-10.0); %Lymphocytes 5.2 % (21.0-51.0); %Monocytes 3.2 % (0.0-10.0); %Neutrophils 91.1 % (42.0-75.0); Hemoglobin 14.2 g/dL (14.0-18.0); Mean Corpuscular HGB CONC 33.6 g/dL (32.0-36.0); Mean Corpuscular Hemoglobin 30.7 pg (27.0-31.0); Mean Corpuscular Volume 91.2 fL (78.0-98.0); Mean Platelet Volume 8.8 fL (7.4-10.4); Platelet Count 107 thou/uL (130-400); RBC Distribution Width 12.9 % (11.5-14.5); Red Blood Cell (RBC) Count 4.63 mill/uL (4.70-6.10); White Blood Cell (WBC) Count 12.9 thou/uL (4.8-10.8)
[2019-02-06 04:45] LABS: Anion Gap 10 mmol/L (10-20); BUN (Urea Nitrogen) 28 mg/dL (8.4-25.7); Calc. Creatinine Clearance 171 mL/min (70-130); Calcium 8.4 mg/dL (7.8-10.44); Carbon Dioxide 28 mmol/L (23-31); Chloride 101 mmol/L (98-107); Estimated GFR-MDRD Greater than 90; Glucose 157 mg/dL (80-115); Potassium 4.5 mmol/L (3.5-5.1); Sodium 134 mmol/L (136-145)
[2019-02-06] MEDS: methylPREDNISolone Sod Succ 40 MG VIAL IVP SCH ×4 (05:26→23:45)
[2019-02-06] MEDS: Metoclopramide HCl 10 MG/2 ML VIAL IVP SCH ×3 (05:26→21:04)
[2019-02-06] MEDS: Mometasone/Formoterol 120 PUFF INHALER INH SCH ×2 (07:04→18:19)
[2019-02-06 07:19] LABS: Actual Bicarbonate (HCO3a) 27.6 mEq/L (22-28); Base Excess (BEa) 2.7 mEq/L (-2.0 to +3.0); CO2 Tension 43.8 mmHg (35.0-45.0); Calcium, Ionized 1.19 mmol/L (1.12-1.30); Carboxyhemoglobin (COHb) 1.4 gm% (0.0-3.0); Hemoglobin (Hb) 14.4 g/dL (14.0-18.0); O2 Tension (PaO2) 74.9 mmHg (> 80.0); Potassium - ABG Lab 4.39 mmol/L (3.70-5.30); pH, Arterial 7.42 (7.35-7.45)
[2019-02-06 07:20] LABS: Puncture Site L.R.
[2019-02-06] MEDS: hydrALAZINE 25 MG TAB PO SCH ×2 (07:36→21:03)
[2019-02-06] MEDS: Citalopram 20 MG TAB PO SCH (07:36)
[2019-02-06] MEDS: ALPRAZolam 0.25 MG TAB PO SCH ×3 (07:36→21:03)
[2019-02-06] MEDS: Famotidine/PF 20 mg/2ml Vial SLOW IVP SCH ×2 (07:37→21:02)
[2019-02-06] MEDS: Enoxaparin Sodium 40 MG/0.4 ML SYRINGE SC SCH (07:37)
[2019-02-06] MEDS: cloNIDine 0.2 MG TAB PO SCH ×3 (07:37→21:02)
--- NOTE | 2019-02-06 08:44 | PRG ---
DATE OF SERVICE: 02/06/2019 TIME SPENT: 35 minutes of critical care time. SUBJECTIVE: This patient remains intubated on mechanical ventilation. He is on a spontaneous breathing trial this morning. He is awake, alert, and follows all commands. OBJECTIVE: VITAL SIGNS: On exam, temperature is 98.8, pulse is 55, blood pressure 140/80, and O2 saturation 100%. He is on a Precedex drip. Intake for 24 hours 2576, output 4875. Weight 231 pounds. HEENT: Unremarkable. NECK: No adenopathy or JVD. LUNGS: Has soft expiratory wheezes bilaterally. CARDIAC: S1 and S2. Regular. ABDOMEN: Soft, obese, and nontender. EXTREMITIES: No clubbing, cyanosis, or edema. LABORATORY DATA: ABG; pH of 7.42, pCO2 of 43, and pO2 of 74. White blood cell count 12.9, hematocrit 42.2, and platelet count 107. Sodium 134, potassium 4.5, chloride 101, CO2 of 28, BUN 28, creatinine 0.6, and glucose 157. ASSESSMENT: 1. Acute respiratory failure requiring mechanical ventilation. 2. Chronic obstructive pulmonary disease with exacerbation. 3. Improved encephalopathy. 4. Tobacco abuse. PLAN: I will go ahead and extubate him to high-flow oxygen and we will wean the oxygen as tolerated. His sedation will be stopped. Family was at bedside and understands the plan. Job ID: [id number]
--- NOTE | 2019-02-06 09:39 | RAD ---
SINGLE VIEW CHEST: INDICATIONS: Intubation. COMPARISON: Prior exam dated 02/05/2019. FINDINGS/IMPRESSION: The patient remains intubated with gastric catheter placement. There is improvement in the bibasilar opacity seen on the prior examination, likely related to atelectasis. Heart size is within normal li mits. No pneumothorax or pleural effusion is evident. POS: BH
[2019-02-06] MEDS: Verapamil 80 MG TAB PO SCH ×3 (10:33→21:02)
[2019-02-06] MEDS: hydrALAZINE 20 MG/ML VIAL SLOW IVP PRN ×2 (10:35→15:48)
--- NOTE | 2019-02-06 15:42 | PDOC.HOSPP ---
- Subjective Subjective: Doing well post-extubation. Says he has called his daughter to come pick him up today. - Objective Vital Signs & Weight: Vital Signs (12 hours) Temp Pulse Resp BP Pulse Ox 02/06/19 12:00 97.9 F 02/06/19 11:20 58 L 16 100 02/06/19 11:17 58 L 16 100 02/06/19 10:35 55 L 171/101 H 02/06/19 08:16 19 99 02/06/19 08:00 98.1 F 100 02/06/19 07:37 143/87 H 02/06/19 07:36 64 143/87 H 02/06/19 07:05 48 L 143/87 H 02/06/19 07:03 48 L 14 100 02/06/19 07:02 48 L 14 100 02/06/19 06:00 15 02/06/19 04:00 98.8 F 18 Weight Admit Weight 233 lb 3.2 oz Weight 231 lb 3.2 oz Most Recent Monitor Data Heart Rate from ECG 90 NIBP 158/89 NIBP BP-Mean 112 Respiration from ECG 16 SpO2 100 I&O: 02/05/19 02/06/19 02/07/19 06:59 06:59 06:59 Intake Total 3301 8495 Output Total 5650 4875 625 [facility]2343 -[id number] [phone] Result Diagrams: 02/06/19 03:50 02/06/19 03:50 Hospitalist ROS - Medication Medications: Active Medications Generic Name Dose Route Start Last Admin Trade Name Freq PRN Reason Stop Dose Admin Albuterol/Ipratropium 3 ml 02/05/19 10:30 02/06/19 11:17 Duoneb NEB 3 ml [id number] CARLOS Administration Alprazolam 0.25 mg 02/04/19 09:00 02/06/19 07:36 Xanax PO 0.25 mg TID CARLOS Administration Budesonide 0.25 mg 01/30/19 14:30 02/06/19 11:20 Pulmicort Neb Solution INH 0.25 mg [id number] CARLOS Administration Citalopram Hydrobromide 40 mg 01/29/19 09:00 02/06/19 07:36 Celexa PO 40 mg DAILY CARLOS Administration Clonidine 0.1 mg 01/28/19 17:36 02/03/19 16:15 Catapres PO 0.1 mg Q4H PRN Administration SBP Greater Than 170 Clonidine 0.2 mg 02/03/19 21:00 02/06/19 07:37 Catapres PO 0.2 mg TID CARLOS Administration Enoxaparin Sodium 40 mg 01/31/19 09:00 02/06/19 07:37 Lovenox SC 40 mg 0900 CARLOS Administration Famotidine 20 mg 01/29/19 09:00 02/06/19 07:37 Pepcid SLOW IVP 20 mg BID CARLOS Administration Hydralazine HCl 20 mg 02/03/19 10:01 02/06/19 10:35 Apresoline SLOW IVP 20 mg Q6H PRN Administration Blood Pressure Hydralazine HCl 75 mg 02/03/19 21:00 02/06/19 07:36 Apresoline PO 75 mg BID CARLOS Administration Ceftriaxone Sodium 1 gm/ 100 mls @ 200 mls/hr 01/28/19 23:30 02/05/19 23:21 Sodium Chloride IVPB 100 mls Q24HR CARLOS Administration Methylprednisolone Sodium Succinate 40 mg 01/28/19 18:00 02/06/19 11:25 Solu-Medrol IVP 40 mg Q6HR CARLOS Administration Metoclopramide HCl 10 mg 02/03/19 14:00 02/06/19 15:38 Reglan IVP Not Given Q8HR CARLOS Mometasone Furoate/Formoterol Fumar 2 puff 01/28/19 18:30 02/06/19 07:04 Dulera 200 Mcg/5 Mcg Inhaler INH 2 puff BID-RT CARLOS Administration Montelukast Sodium 10 mg 01/28/19 21:00 02/05/19 20:44 Singulair PO 10 mg QPM CARLOS Administration Sodium Chloride 10 ml 01/29/19 09:00 02/06/19 10:47 Flush - Normal Saline IVF 10 ml Q12HR CARLOS Administration Verapamil HCl 80 mg 02/03/19 09:00 02/06/19 10:33 Calan PO Not Given TID CARLOS - Exam General Appearance: NAD, awake alert Neck: supple, symmetric, no JVD, no thyromegaly, no lymphadenopathy, no carotid bruit Heart: RRR, no murmur, no gallops, no rubs, normal peripheral pulses Respiratory: rales, tachypneic, wheezes (mild) Gastrointestinal: soft, non-tender, non-distended, normal bowel sounds, no palpable masses, no hepatomegaly, no splenomegaly, no bruit Extremities: no cyanosis, no clubbing, no edema Psychiatric - other findings: May be a little confused. Hosp A/P (1) Acute metabolic encephalopathy Code(s): G93.41 - METABOLIC ENCEPHALOPATHY Status: Acute (2) Acute respiratory failure with hypoxia and hypercapnia Code(s): J96.01 - ACUTE RESPIRATORY FAILURE WITH HYPOXIA; J96.02 - ACUTE RESPIRATORY FAILURE WITH HYPERCAPNIA Status: Acute (3) COPD exacerbation Code(s): J44.1 - CHRONIC OBSTRUCTIVE PULMONARY DISEASE W (ACUTE) EXACERBATION Status: Acute (4) Hypertension Code(s): I10 - ESSENTIAL (PRIMARY) HYPERTENSION Status: Chronic (5) Obesity (BMI 30-39.9) Code(s): E66.9 - OBESITY, UNSPECIFIED Status: Chronic (6) Tobacco abuse Code(s): Z72.0 - TOBACCO USE Status: Chronic - Plan Extubated. Continue nebs, steroids. Supplemental oxygen. Explained that he will need to be here for a couple more days. Continue CCB for BP.
[2019-02-06] MEDS: Montelukast Sodium 10 mg Tablet PO SCH (21:03)
[2019-02-06] MEDS: cefTRIAXone\\ROCEPHIN 1 GM in Sodium Chloride 0.9% 100 ML IVPB SCH (23:44)
[2019-02-07] MEDS: Budesonide 0.25 MG/2 ML NEB INH SCH ×6 (02:52→22:13)
[2019-02-07] MEDS: hydrALAZINE 20 MG/ML VIAL SLOW IVP PRN (04:07)
[2019-02-07 05:36] LABS: Anion Gap 13 mmol/L (10-20); BUN (Urea Nitrogen) 31 mg/dL (8.4-25.7); Calc. Creatinine Clearance 158 mL/min (70-130); Calcium 9.1 mg/dL (7.8-10.44); Carbon Dioxide 30 mmol/L (23-31); Chloride 99 mmol/L (98-107); Estimated GFR-MDRD Greater than 90; Glucose 114 mg/dL (80-115); Potassium 4.1 mmol/L (3.5-5.1); Sodium 138 mmol/L (136-145)
[2019-02-07 06:23] LABS: Band 4 % (5-11); Hemoglobin 16.8 g/dL (14.0-18.0); MDiff Complete? YES; Mean Corpuscular HGB CONC 33.2 g/dL (32.0-36.0); Mean Corpuscular Hemoglobin 30.4 pg (27.0-31.0); Mean Corpuscular Volume 91.6 fL (78.0-98.0); Mean Platelet Volume 8.8 fL (7.4-10.4); Monocytes 8 % (0-10); Neutrophil 88 % (42-75); Platelet Count 199 thou/uL (130-400); RBC Distribution Width 13.2 % (11.5-14.5); Red Blood Cell (RBC) Count 5.53 mill/uL (4.70-6.10); White Blood Cell (WBC) Count 26.3 thou/uL (4.8-10.8)
[2019-02-07] MEDS: Metoclopramide HCl 10 MG/2 ML VIAL IVP SCH (06:35)
[2019-02-07] MEDS: methylPREDNISolone Sod Succ 40 MG VIAL IVP SCH ×3 (06:35→18:46)
[2019-02-07] MEDS: Mometasone/Formoterol 120 PUFF INHALER INH SCH ×2 (07:13→18:36)
[2019-02-07] MEDS: Enoxaparin Sodium 40 MG/0.4 ML SYRINGE SC SCH (09:45)
[2019-02-07] MEDS ORDERED: Famotidine 20 MG TAB PO SCH (09:45)
[2019-02-07] MEDS: cloNIDine 0.2 MG TAB PO SCH ×3 (09:46→21:15)
[2019-02-07] MEDS: Doxycycline 100 MG CAP PO SCH ×2 (09:46→21:16)
[2019-02-07] MEDS: Citalopram 20 MG TAB PO SCH (09:46)
[2019-02-07] MEDS: Verapamil 80 MG TAB PO SCH ×3 (09:46→21:18)
[2019-02-07] MEDS: ALPRAZolam 0.25 MG TAB PO SCH ×3 (09:47→21:14)
[2019-02-07] MEDS: hydrALAZINE 25 MG TAB PO SCH ×2 (09:47→21:16)
--- NOTE | 2019-02-07 09:57 | PRG ---
DATE OF SERVICE: 02/07/2019 SUBJECTIVE: Marcos Epps is a 63-year-old gentleman who is extubated yesterday, doing well. OBJECTIVE: VITAL SIGNS: His sats are 92% on 2 L, pulse 97, blood pressure 130/87, and respirations 12. CHEST: Bilateral wheezing. CARDIAC: Sinus tach. ABDOMEN: Soft. LABORATORY DATA: White count is still 26,000. H and H stable. Lytes are normal. Bicarb is 31. ASSESSMENT: 1. Acute on chronic respiratory failure. 2. Metabolic encephalopathy. 3. Hypertension. PLAN: Continue IV steroids for another 24 hours, then switch over to p.o. prednisone. Continue PT supportive care. He probably needs an outpatient sleep study at some point. Family wishes Dr. Vázquez to see the patient. Apparently seen him in the past prior to discharge. Consult Cardiology. Job ID: [id number]
[2019-02-07] MEDS: Famotidine/PF 20 mg/2ml Vial SLOW IVP SCH (10:19)
[2019-02-07] MEDS: Famotidine 20 MG TAB PO SCH ×2 (12:06→21:19)
[2019-02-07] MEDS ORDERED: Artificial Tears 18 DROP/0.9 ML EA EYE PRN (14:45)
[2019-02-07] MEDS: Montelukast Sodium 10 mg Tablet PO SCH (21:17)
--- NOTE | 2019-02-07 21:19 | PDOC.HOSPP ---
- Subjective Encounter Date: 02/07/19 Encounter Time: 15:20 Subjective: f/u for resp failure s/p extubation on current RA. States feeling better overall but remains weak. Plan for SNF options per pt and case mgmt. - Objective Vital Signs & Weight: Vital Signs (12 hours) Temp Pulse Pulse Resp BP BP BP 02/07/19 18:36 65 16 02/07/19 18:34 65 16 02/07/19 16:00 98.9 F 02/07/19 15:07 163/77 H 02/07/19 15:05 79 20 02/07/19 12:00 98 F 02/07/19 11:26 84 20 02/07/19 09:47 89 136/69 02/07/19 09:46 134/69 02/07/19 09:39 101 H 138/89 157/99 H Pulse Ox 02/07/19 18:36 99 02/07/19 18:34 99 02/07/19 16:00 02/07/19 15:07 02/07/19 15:05 99 02/07/19 12:00 02/07/19 11:26 95 02/07/19 09:47 02/07/19 09:46 02/07/19 09:39 Weight Admit Weight 233 lb 3.2 oz Weight 219 lb 9.286 oz Most Recent Monitor Data Heart Rate from ECG 68 NIBP 169/69 NIBP BP-Mean 102 Respiration from ECG 18 SpO2 98 I&O: 02/06/19 02/07/19 02/08/19 06:59 06:59 06:59 Intake Total 2576 100 680 Output Total 4867 2630 630 Balance -1484 -5001 50 Result Diagrams: 02/07/19 04:35 02/07/19 04:35 Additional Labs: Laboratory Tests 02/05/19 02/06/19 04:15 03:50 WBC 12.5 H 12.9 H EKG Reviewed by me: Yes (Tele - SR) Hospitalist ROS - Medication Medications: Active Medications Generic Name Dose Route Start Last Admin Trade Name Freq PRN Reason Stop Dose Admin Acetaminophen 1,000 mg 01/28/19 17:36 02/07/19 04:16 Tylenol PO 1,000 mg Q6H PRN Administration Mild Pain (1-3) Albuterol/Ipratropium 3 ml 02/05/19 10:30 02/07/19 18:34 Duoneb NEB 3 ml [id number] CARLOS Administration Alprazolam 0.25 mg 02/04/19 09:00 02/07/19 15:07 Xanax PO 0.25 mg TID CARLOS Administration Budesonide 0.25 mg 01/30/19 14:30 02/07/19 18:36 Pulmicort Neb Solution INH 0.25 mg [id number] CARLOS Administration Citalopram Hydrobromide 40 mg 01/29/19 09:00 02/07/19 09:46 Celexa PO 40 mg DAILY CARLOS Administration Clonidine 0.1 mg 01/28/19 17:36 02/03/19 16:15 Catapres PO 0.1 mg Q4H PRN Administration SBP Greater Than 170 Clonidine 0.2 mg 02/03/19 21:00 02/07/19 15:07 Catapres PO 0.2 mg TID CARLOS Administration Doxycycline Hyclate 100 mg 02/07/19 09:00 02/07/19 09:46 Vibramycin PO 100 mg BID CARLOS Administration Enoxaparin Sodium 40 mg 01/31/19 09:00 02/07/19 09:45 Lovenox SC 40 mg 0900 CARLOS Administration Famotidine 20 mg 02/07/19 21:00 02/07/19 12:06 Pepcid PO 20 mg BID CARLOS Administration Hydralazine HCl 20 mg 02/03/19 10:01 02/07/19 04:07 Apresoline SLOW IVP 20 mg Q6H PRN Administration Blood Pressure Hydralazine HCl 75 mg 02/03/19 21:00 02/07/19 09:47 Apresoline PO 75 mg BID CARLOS Administration Methylprednisolone Sodium Succinate 40 mg 01/28/19 18:00 02/07/19 18:46 Solu-Medrol IVP 40 mg Q6HR CARLOS Administration Mometasone Furoate/Formoterol Fumar 2 puff 01/28/19 18:30 02/07/19 18:36 Dulera 200 Mcg/5 Mcg Inhaler INH 2 puff BID-RT CARLOS Administration Montelukast Sodium 10 mg 01/28/19 21:00 02/06/19 21:03 Singulair PO 10 mg QPM CARLOS Administration Ondansetron HCl 4 mg 01/28/19 17:36 02/07/19 04:05 Zofran IVP 4 mg Q6H PRN Administration Nausea/Vomiting Sodium Chloride 10 ml 01/29/19 09:00 02/07/19 09:48 Flush - Normal Saline IVF 10 ml Q12HR CARLOS Administration Verapamil HCl 80 mg 02/03/19 09:00 02/07/19 15:09 Calan PO 80 mg TID CARLOS Administration - Exam General Appearance: NAD, awake alert Eye: PERRL Eye - other findings: bilat conjunctival injection ENT: normocephalic atraumatic, no oropharyngeal lesions Neck: supple, symmetric, no JVD, no thyromegaly Heart: RRR, no gallops, no rubs, normal peripheral pulses Respiratory - other findings: diminished in bases, prolonged exp phase Gastrointestinal: soft, non-distended, normal bowel sounds, no palpable masses Gastrointestinal - other findings: obese Extremities: no cyanosis, 1+ LE edema Skin: normal turgor, no lesions Neurological: cranial nerve grossly intact, no focal deficits, no new deficit Musculoskeletal: normal tone, generalized weakness Psychiatric: oriented to person, oriented to place Hosp A/P (1) COPD exacerbation Code(s): J44.1 - CHRONIC OBSTRUCTIVE PULMONARY DISEASE W (ACUTE) EXACERBATION Status: Acute Plan: Continue Solumedrol, Dulera, Pulmicort and Duonebs, O2 PRN (2) Acute respiratory failure with hypoxia and hypercapnia Code(s): J96.01 - ACUTE RESPIRATORY FAILURE WITH HYPOXIA; J96.02 - ACUTE RESPIRATORY FAILURE WITH HYPERCAPNIA Status: Acute Plan: Improved, extubated successfully (3) Acute metabolic encephalopathy Code(s): G93.41 - METABOLIC ENCEPHALOPATHY Status: Acute Plan: Improved with pulmonary stabilization (4) Hypertension Code(s): I10 - ESSENTIAL (PRIMARY) HYPERTENSION Status: Chronic Qualifiers: Hypertension type: essential hypertension Qualified Code(s): I10 - Essential (primary) hypertension Plan: Stable, continue current BP regimen (5) Obesity (BMI 30-39.9) Code(s): E66.9 - OBESITY, UNSPECIFIED Status: Chronic (6) Tobacco abuse Code(s): Z72.0 - TOBACCO USE Status: Chronic - Plan continue antibiotics, PT/OT, social worker, respiratory therapy, out of bed/ ambulate, DVT proph w/SCDs Stable overall Continue Solumedrol IV Continue Pulmicort, Duonebs Continue Doxycycline PT for mobilization SNF options pending
[2019-02-08] MEDS: methylPREDNISolone Sod Succ 40 MG VIAL IVP SCH ×2 (00:47→06:18)
[2019-02-08] MEDS: Budesonide 0.25 MG/2 ML NEB INH SCH ×2 (02:44→07:36)
[2019-02-08] MEDS ORDERED: Labetalol HCl 100 MG/20 ML VIAL ONE (07:27)
[2019-02-08] MEDS: Mometasone/Formoterol 120 PUFF INHALER INH SCH ×2 (07:34→18:54)
--- NOTE | 2019-02-08 07:37 | PRG ---
DATE OF SERVICE: 02/08/2019 SUBJECTIVE: Awake, alert, responsive, uneventful light. OBJECTIVE: VITAL SIGNS: Saturations are 96% on room air, pulse 85, blood pressure 160/80, and respirations 18. CHEST: Minimal wheezing. CARDIAC: Normal S1 and S2. No gallops. ABDOMEN: No masses. ASSESSMENT: 1. Respiratory failure. 2. Metabolic encephalopathy. 3. Alcohol abuse. 4. Tobacco abuse. PLAN: He can be transferred out of the ICU to step-down unit. Switch over to oral prednisone and oral antibiotics. We will follow. Job ID: [id number]
[2019-02-08] MEDS: Doxycycline 100 MG CAP PO SCH ×2 (07:40→20:16)
[2019-02-08] MEDS: Enoxaparin Sodium 40 MG/0.4 ML SYRINGE SC SCH (07:41)
[2019-02-08] MEDS: predniSONE 20 MG TAB PO SCH ×2 (07:41→20:16)
[2019-02-08] MEDS: Verapamil 80 MG TAB PO SCH ×3 (07:41→20:16)
[2019-02-08] MEDS: ALPRAZolam 0.25 MG TAB PO SCH (07:42)
[2019-02-08] MEDS: Citalopram 20 MG TAB PO SCH (07:42)
[2019-02-08] MEDS: Famotidine 20 MG TAB PO SCH ×2 (07:42→20:16)
[2019-02-08] MEDS: hydrALAZINE 25 MG TAB PO SCH ×2 (07:42→20:15)
[2019-02-08] MEDS: cloNIDine 0.2 MG TAB PO SCH ×3 (07:43→20:15)
[2019-02-08] MEDS ORDERED: ALPRAZolam 0.25 MG TAB PO PRN (11:42)
--- NOTE | 2019-02-08 14:20 | PDOC.HOSPP ---
- Subjective Encounter Date: 02/08/19 Encounter Time: 14:10 Subjective: f/u for resp failure, COPD and deconditioning. Feels ok overall but remains very weak. Needs maximal assist for standing. Planning for SNF but options pending. - Objective Vital Signs & Weight: Vital Signs (12 hours) Temp Pulse Resp BP Pulse Ox Pulse Ox Pulse Ox 02/08/19 14:03 87 20 97 02/08/19 10:33 66 14 98 02/08/19 09:05 92 L 93 L 02/08/19 08:00 90 L 02/08/19 07:43 76 173/87 H 02/08/19 07:42 76 173/67 H 02/08/19 07:36 96 02/08/19 07:33 76 19 96 02/08/19 07:00 98.5 F 02/08/19 04:00 98.0 F 02/08/19 02:45 70 14 98 02/08/19 02:44 70 14 98 Pulse Ox 02/08/19 14:03 02/08/19 10:33 02/08/19 09:05 95 02/08/19 08:00 02/08/19 07:43 02/08/19 07:42 02/08/19 07:36 02/08/19 07:33 02/08/19 07:00 02/08/19 04:00 02/08/19 02:45 02/08/19 02:44 Weight Admit Weight 233 lb 3.2 oz Weight 219 lb 12.814 oz Most Recent Monitor Data Heart Rate from ECG 80 NIBP 173/87 NIBP BP-Mean 115 Respiration from ECG 20 SpO2 97 I&O: 02/07/19 02/08/19 02/09/19 06:59 06:59 06:59 Intake Total 462 723 9442 Output Total 0340 1565 Balance -2530 -835 1500 Result Diagrams: 02/07/19 04:35 02/07/19 04:35 Hospitalist ROS - Medication Medications: Active Medications Generic Name Dose Route Start Last Admin Trade Name Freq PRN Reason Stop Dose Admin Acetaminophen 1,000 mg 01/28/19 17:36 02/07/19 04:16 Tylenol PO 1,000 mg Q6H PRN Administration Mild Pain (1-3) Albuterol/Ipratropium 3 ml 02/05/19 10:30 02/08/19 14:03 Duoneb NEB 3 ml [id number] CARLOS Administration Citalopram Hydrobromide 40 mg 01/29/19 09:00 02/08/19 07:42 Celexa PO 40 mg DAILY CARLOS Administration Clonidine 0.1 mg 01/28/19 17:36 02/03/19 16:15 Catapres PO 0.1 mg Q4H PRN Administration SBP Greater Than 170 Clonidine 0.2 mg 02/03/19 21:00 02/08/19 07:43 Catapres PO 0.2 mg TID CARLOS Administration Doxycycline Hyclate 100 mg 02/07/19 09:00 02/08/19 07:40 Vibramycin PO 100 mg BID CARLOS Administration Enoxaparin Sodium 40 mg 01/31/19 09:00 02/08/19 07:41 Lovenox SC 40 mg 0900 CARLOS Administration Famotidine 20 mg 02/07/19 21:00 02/08/19 07:42 Pepcid PO 20 mg BID CARLOS Administration Hydralazine HCl 20 mg 02/03/19 10:01 02/07/19 04:07 Apresoline SLOW IVP 20 mg Q6H PRN Administration Blood Pressure Hydralazine HCl 75 mg 02/03/19 21:00 02/08/19 07:42 Apresoline PO 75 mg BID CARLOS Administration Mometasone Furoate/Formoterol Fumar 2 puff 01/28/19 18:30 02/08/19 07:34 Dulera 200 Mcg/5 Mcg Inhaler INH 2 puff BID-RT CARLOS Administration Montelukast Sodium 10 mg 01/28/19 21:00 02/07/19 21:17 Singulair PO 10 mg QPM CARLOS Administration Ondansetron HCl 4 mg 01/28/19 17:36 02/07/19 04:05 Zofran IVP 4 mg Q6H PRN Administration Nausea/Vomiting Prednisone 20 mg 02/08/19 09:00 02/08/19 07:41 Prednisone PO 20 mg BID CARLOS Administration Sodium Chloride 10 ml 01/29/19 09:00 02/08/19 07:44 Flush - Normal Saline IVF 10 ml Q12HR CARLOS Administration Verapamil HCl 80 mg 02/03/19 09:00 02/08/19 07:41 Calan PO 80 mg TID CARLOS Administration - Exam General Appearance: NAD, awake alert Eye: PERRL, anicteric sclera ENT: normocephalic atraumatic, no oropharyngeal lesions Neck: supple, symmetric, no JVD, no thyromegaly, no lymphadenopathy Heart: RRR, no murmur, no gallops, no rubs, normal peripheral pulses Respiratory - other findings: diminished bilat, exp wheezes occasionally Gastrointestinal: soft, non-tender, non-distended, normal bowel sounds, no palpable masses Extremities: no cyanosis, no clubbing, no edema Skin: normal turgor, no lesions Neurological: cranial nerve grossly intact, no new deficit Musculoskeletal: normal tone, generalized weakness Psychiatric: A&O x 3 Hosp A/P (1) COPD exacerbation Code(s): J44.1 - CHRONIC OBSTRUCTIVE PULMONARY DISEASE W (ACUTE) EXACERBATION Status: Acute (2) Acute respiratory failure with hypoxia and hypercapnia Code(s): J96.01 - ACUTE RESPIRATORY FAILURE WITH HYPOXIA; J96.02 - ACUTE RESPIRATORY FAILURE WITH HYPERCAPNIA Status: Acute (3) Acute metabolic encephalopathy Code(s): G93.41 - METABOLIC ENCEPHALOPATHY Status: Acute (4) Hypertension Code(s): I10 - ESSENTIAL (PRIMARY) HYPERTENSION Status: Chronic Qualifiers: Hypertension type: essential hypertension Qualified Code(s): I10 - Essential (primary) hypertension (5) Obesity (BMI 30-39.9) Code(s): E66.9 - OBESITY, UNSPECIFIED Status: Chronic (6) Tobacco abuse Code(s): Z72.0 - TOBACCO USE Status: Chronic - Plan plan discussed w/ family, continue antibiotics, PT/OT, social media editor, respiratory therapy, out of bed/ambulate, DVT proph w/SCDs Stable overall Start Prednisone 20mg BID Continue Pulmicort, Duonebs Continue Doxycycline PT for mobilization SNF options pending
[2019-02-08] MEDS: Montelukast Sodium 10 mg Tablet PO SCH (20:15)
[2019-02-09] MEDS: Mometasone/Formoterol 120 PUFF INHALER INH SCH ×2 (06:58→20:41)
[2019-02-09] MEDS: Doxycycline 100 MG CAP PO SCH ×2 (08:18→20:57)
[2019-02-09] MEDS: predniSONE 20 MG TAB PO SCH ×2 (08:18→20:56)
[2019-02-09] MEDS: Famotidine 20 MG TAB PO SCH ×2 (08:19→20:56)
[2019-02-09] MEDS: Verapamil 80 MG TAB PO SCH ×3 (08:19→20:57)
[2019-02-09] MEDS: hydrALAZINE 25 MG TAB PO SCH ×2 (08:19→20:56)
[2019-02-09] MEDS: cloNIDine 0.2 MG TAB PO SCH ×3 (08:20→20:56)
[2019-02-09] MEDS: Citalopram 20 MG TAB PO SCH (08:20)
[2019-02-09] MEDS: Enoxaparin Sodium 40 MG/0.4 ML SYRINGE SC SCH (08:21)
--- NOTE | 2019-02-09 10:19 | PRG ---
DATE OF SERVICE: 02/09/2019 SUBJECTIVE: This morning, the patient is better. Awake, alert, and responsive. He is walking in the halls without any issues. His Ceballos is being discontinued. OBJECTIVE: VITAL SIGNS: Temperature 98, pulse 61, saturations are on room air, blood pressure 139/73. CHEST: Minimal wheezing. CARDIAC: Normal S1 and S2. ABDOMEN: No mass. ASSESSMENT: 1. Chronic obstructive pulmonary disease. 2. Respiratory failure. 3. Encephalopathy, much improved. PLAN: 1. He can probably be discharged to his residential any time. 2. Taper steroids over 2 weeks in his outpatient sleep study. 3. Refrain from smoking and drinking . Job ID: [id number]
--- NOTE | 2019-02-09 19:12 | PDOC.HOSPP ---
- Subjective Encounter Date: 02/09/19 Encounter Time: 14:00 Subjective: f/u for COPD exacerbation currently on RA. Ambulated in halls with PT and tolerating po. Feels better overall with plans for inpt rehab after d/c. - Objective Vital Signs & Weight: Vital Signs (12 hours) Temp Pulse Resp BP BP Pulse Ox Pulse Ox 02/09/19 15:35 98.2 F 97 20 154/99 H 96 02/09/19 15:22 173/90 H 02/09/19 14:02 96 02/09/19 13:38 66 16 95 02/09/19 10:51 61 20 96 02/09/19 08:26 99 02/09/19 08:20 139/79 02/09/19 08:19 61 139/79 Pulse Ox 02/09/19 15:35 02/09/19 15:22 02/09/19 14:02 94 L 02/09/19 13:38 02/09/19 10:51 02/09/19 08:26 02/09/19 08:20 02/09/19 08:19 Weight Admit Weight 233 lb 3.2 oz Weight 212 lb 9.6 oz Most Recent Monitor Data Heart Rate from ECG 80 NIBP 173/87 NIBP BP-Mean 115 Respiration from ECG 20 SpO2 97 I&O: 02/08/19 02/09/19 02/10/19 06:59 06:59 06:59 Intake Total 730 1800 720 Output Total 5751 822 4277 Balance -835 900 -880 Result Diagrams: 02/07/19 04:35 02/07/19 04:35 Additional Labs: Laboratory Tests 02/05/19 02/06/19 04:15 03:50 WBC 12.5 H 12.9 H Hospitalist ROS - Medication Medications: Active Medications Generic Name Dose Route Start Last Admin Trade Name Freq PRN Reason Stop Dose Admin Acetaminophen 1,000 mg 01/28/19 17:36 02/07/19 04:16 Tylenol PO 1,000 mg Q6H PRN Administration Mild Pain (1-3) Albuterol/Ipratropium 3 ml 02/05/19 10:30 02/09/19 13:38 Duoneb NEB 3 ml [id number] CARLOS Administration Citalopram Hydrobromide 40 mg 01/29/19 09:00 02/09/19 08:20 Celexa PO 40 mg DAILY CARLOS Administration Clonidine 0.1 mg 01/28/19 17:36 02/03/19 16:15 Catapres PO 0.1 mg Q4H PRN Administration SBP Greater Than 170 Clonidine 0.2 mg 02/03/19 21:00 02/09/19 15:22 Catapres PO 0.2 mg TID CARLOS Administration Doxycycline Hyclate 100 mg 02/07/19 09:00 02/09/19 08:18 Vibramycin PO 100 mg BID CARLOS Administration Enoxaparin Sodium 40 mg 01/31/19 09:00 02/09/19 08:21 Lovenox SC 40 mg 0900 CARLOS Administration Famotidine 20 mg 02/07/19 21:00 02/09/19 08:19 Pepcid PO 20 mg BID CARLOS Administration Hydralazine HCl 20 mg 02/03/19 10:01 02/07/19 04:07 Apresoline SLOW IVP 20 mg Q6H PRN Administration Blood Pressure Hydralazine HCl 75 mg 02/03/19 21:00 02/09/19 08:19 Apresoline PO 75 mg BID CARLOS Administration Mometasone Furoate/Formoterol Fumar 2 puff 01/28/19 18:30 02/09/19 06:58 Dulera 200 Mcg/5 Mcg Inhaler INH 2 puff BID-RT CARLOS Administration Montelukast Sodium 10 mg 01/28/19 21:00 02/08/19 20:15 Singulair PO 10 mg QPM CARLOS Administration Ondansetron HCl 4 mg 01/28/19 17:36 02/07/19 04:05 Zofran IVP 4 mg Q6H PRN Administration Nausea/Vomiting Prednisone 20 mg 02/08/19 09:00 02/09/19 08:18 Prednisone PO 20 mg BID CARLOS Administration Sodium Chloride 10 ml 01/29/19 09:00 02/09/19 08:21 Flush - Normal Saline IVF 10 ml Q12HR CARLOS Administration Verapamil HCl 80 mg 02/03/19 09:00 02/09/19 15:22 Calan PO 80 mg TID CARLOS Administration - Exam General Appearance: NAD, awake alert Eye: PERRL, anicteric sclera ENT: normocephalic atraumatic, no oropharyngeal lesions Neck: supple, symmetric, no JVD, no thyromegaly, no lymphadenopathy Heart: RRR, no murmur, no gallops, no rubs, normal peripheral pulses Respiratory: no rales Respiratory - other findings: diminished bilat, prolonged exp phase Gastrointestinal: soft, non-tender, non-distended, normal bowel sounds, no palpable masses Extremities: no cyanosis, no clubbing, no edema Skin: normal turgor, no lesions Neurological: cranial nerve grossly intact, no new deficit Musculoskeletal: normal tone, generalized weakness Psychiatric: oriented to person, oriented to place Hosp A/P (1) COPD exacerbation Code(s): J44.1 - CHRONIC OBSTRUCTIVE PULMONARY DISEASE W (ACUTE) EXACERBATION Status: Acute Plan: Stable currently, continue supportive mgmt, Prednisone 20mg BID (2) Acute respiratory failure with hypoxia and hypercapnia Code(s): J96.01 - ACUTE RESPIRATORY FAILURE WITH HYPOXIA; J96.02 - ACUTE RESPIRATORY FAILURE WITH HYPERCAPNIA Status: Acute Plan: Improved, remains on RA, continue general pulmonary support (3) Acute metabolic encephalopathy Code(s): G93.41 - METABOLIC ENCEPHALOPATHY Status: Acute Plan: Improved, likely multifactorial given resp failure (4) Hypertension Code(s): I10 - ESSENTIAL (PRIMARY) HYPERTENSION Status: Chronic Qualifiers: Hypertension type: essential hypertension Qualified Code(s): I10 - Essential (primary) hypertension (5) Obesity (BMI 30-39.9) Code(s): E66.9 - OBESITY, UNSPECIFIED Status: Chronic (6) Tobacco abuse Code(s): Z72.0 - TOBACCO USE Status: Chronic - Plan plan discussed w/ family, continue antibiotics, PT/OT, social worker aide, respiratory therapy, out of bed/ambulate Stable overall Start Prednisone 20mg BID Continue Pulmicort, Duonebs Continue Doxycycline PT for mobilization Inpt rehab options pending OOB/ambulate with PT
--- NOTE | 2019-02-09 19:13 | CT ---
CT BRAIN NONCONTRAST: DATE: 02/09/2019 HISTORY: 63-year-old male with altered mental status. FINDINGS: There is no evidence of acute intra-axial or extra-axial hemorrhage. There is no midline shift or any other mass effect. There is no extra-axial fluid collection. There is no evidence of obstructive hydrocephalus. Calvarium is intact. Many of the right mastoid air cells are opacified. IMPRESSION: 1. No acute intracranial findings. 2. Right mastoid effusion.
[2019-02-09] MEDS ORDERED: Clopidogrel Bisulfate 75 MG TAB ONE (20:03)
[2019-02-09] MEDS: Montelukast Sodium 10 mg Tablet PO SCH (20:57)
[2019-02-10] MEDS: Mometasone/Formoterol 120 PUFF INHALER INH SCH ×2 (06:41→18:13)
[2019-02-10] MEDS: Doxycycline 100 MG CAP PO SCH ×2 (08:31→20:31)
[2019-02-10] MEDS: Famotidine 20 MG TAB PO SCH ×2 (08:32→20:32)
[2019-02-10] MEDS: predniSONE 20 MG TAB PO SCH ×2 (08:33→20:33)
[2019-02-10] MEDS: Citalopram 20 MG TAB PO SCH (08:33)
[2019-02-10] MEDS: Verapamil 80 MG TAB PO SCH ×3 (08:33→20:34)
[2019-02-10] MEDS: cloNIDine 0.2 MG TAB PO SCH ×3 (08:33→20:33)
[2019-02-10] MEDS: hydrALAZINE 25 MG TAB PO SCH ×2 (08:33→20:32)
[2019-02-10] MEDS: Enoxaparin Sodium 40 MG/0.4 ML SYRINGE SC SCH (08:34)
--- NOTE | 2019-02-10 09:24 | PRG ---
DATE OF SERVICE: 02/10/2019 SUBJECTIVE: This morning, he is better. OBJECTIVE: VITAL SIGNS: Temperature 98, blood pressure 139/73, respiratory rate 18, pulse 80. CHEST: Decreased breath sounds. No wheezing. CARDIAC: Normal S1, S2. No gallops. ABDOMEN: No masses. IMPRESSION: 1. Cephalopathy, resolved. 2. Chronic obstructive pulmonary disease, respiratory failure, resolved. 3. Sleep apnea, morbid obesity, alcohol and tobacco abuse. He can be transitioned to a step-down unit. Pulmonary/Critical Care will follow. Job ID: [id number]
--- NOTE | 2019-02-10 16:02 | PDOC.HOSPP ---
- Subjective Encounter Date: 02/10/19 Encounter Time: 15:45 Subjective: f/u for COPD exacerbation s/p mech ventilation. Off O2 currently and maintaining sats. Had a light fall in bathroom yesterday but CT brain negative and no reported injuries. - Objective Vital Signs & Weight: Vital Signs (12 hours) Temp Pulse Resp BP BP Pulse Ox 02/10/19 14:46 129/82 02/10/19 13:49 72 16 95 02/10/19 11:07 98.3 F 72 18 122/66 92 L 02/10/19 10:19 68 16 94 L 02/10/19 08:43 94 L 02/10/19 08:33 66 139/73 02/10/19 07:08 98.3 F 66 18 139/73 94 L 02/10/19 06:39 66 15 97 02/10/19 04:24 98.1 F 65 20 131/77 92 L Weight Admit Weight 233 lb 3.2 oz Weight 205 lb 3.2 oz Most Recent Monitor Data Heart Rate from ECG 80 NIBP 173/87 NIBP BP-Mean 115 Respiration from ECG 20 SpO2 97 I&O: 02/09/19 02/10/19 02/11/19 06:59 06:59 06:59 Intake Total 1800 720 Output Total 900 1600 Balance 900 -880 Result Diagrams: 02/07/19 04:35 02/07/19 04:35 Additional Labs: Laboratory Tests 02/05/19 02/06/19 04:15 03:50 WBC 12.5 H 12.9 H Radiology Reviewed by me: Yes (CT Brain - negative for acute process) Hospitalist ROS - Medication Medications: Active Medications Generic Name Dose Route Start Last Admin Trade Name Freq PRN Reason Stop Dose Admin Acetaminophen 1,000 mg 01/28/19 17:36 02/07/19 04:16 Tylenol PO 1,000 mg Q6H PRN Administration Mild Pain (1-3) Albuterol/Ipratropium 3 ml 02/05/19 10:30 02/10/19 13:49 Duoneb NEB 3 ml [id number] CARLOS Administration Citalopram Hydrobromide 40 mg 01/29/19 09:00 02/10/19 08:33 Celexa PO 40 mg DAILY CARLOS Administration Clonidine 0.1 mg 01/28/19 17:36 02/03/19 16:15 Catapres PO 0.1 mg Q4H PRN Administration SBP Greater Than 170 Clonidine 0.2 mg 02/03/19 21:00 02/10/19 14:46 Catapres PO 0.2 mg TID CARLOS Administration Doxycycline Hyclate 100 mg 02/07/19 09:00 02/10/19 08:31 Vibramycin PO 100 mg BID CARLOS Administration Enoxaparin Sodium 40 mg 01/31/19 09:00 02/10/19 08:34 Lovenox SC 40 mg 0900 CARLOS Administration Famotidine 20 mg 02/07/19 21:00 02/10/19 08:32 Pepcid PO 20 mg BID CARLOS Administration Hydralazine HCl 20 mg 02/03/19 10:01 02/07/19 04:07 Apresoline SLOW IVP 20 mg Q6H PRN Administration Blood Pressure Hydralazine HCl 75 mg 02/03/19 21:00 02/10/19 08:33 Apresoline PO 75 mg BID CARLOS Administration Mometasone Furoate/Formoterol Fumar 2 puff 01/28/19 18:30 02/10/19 06:41 Dulera 200 Mcg/5 Mcg Inhaler INH 2 puff BID-RT CARLOS Administration Montelukast Sodium 10 mg 01/28/19 21:00 02/09/19 20:57 Singulair PO 10 mg QPM CARLOS Administration Ondansetron HCl 4 mg 01/28/19 17:36 02/07/19 04:05 Zofran IVP 4 mg Q6H PRN Administration Nausea/Vomiting Prednisone 20 mg 02/08/19 09:00 02/10/19 08:33 Prednisone PO 20 mg BID CARLOS Administration Sodium Chloride 10 ml 01/29/19 09:00 02/10/19 08:34 Flush - Normal Saline IVF 10 ml Q12HR CARLOS Administration Verapamil HCl 80 mg 02/03/19 09:00 02/10/19 14:46 Calan PO 80 mg TID CARLOS Administration - Exam General Appearance: NAD, awake alert Eye: PERRL, anicteric sclera ENT: normocephalic atraumatic, no oropharyngeal lesions Neck: supple, symmetric, no JVD, no thyromegaly, no lymphadenopathy Heart: RRR, no murmur, no gallops, no rubs, normal peripheral pulses Respiratory: CTAB, no rales, no ronchi Respiratory - other findings: few wheezes exp Gastrointestinal: soft, non-tender, non-distended, normal bowel sounds, no palpable masses Extremities: no cyanosis, no clubbing, no edema Skin: normal turgor, no lesions, no rashes Neurological: cranial nerve grossly intact, no focal deficits, no new deficit Musculoskeletal: normal tone, generalized weakness Psychiatric: normal affect, A&O x 3 Hosp A/P (1) COPD exacerbation Code(s): J44.1 - CHRONIC OBSTRUCTIVE PULMONARY DISEASE W (ACUTE) EXACERBATION Status: Acute Plan: Stable, continue supportive mgmt, Prednisone, Duonebs (2) Acute respiratory failure with hypoxia and hypercapnia Code(s): J96.01 - ACUTE RESPIRATORY FAILURE WITH HYPOXIA; J96.02 - ACUTE RESPIRATORY FAILURE WITH HYPERCAPNIA Status: Acute Plan: Stable, O2 prn (3) Acute metabolic encephalopathy Code(s): G93.41 - METABOLIC ENCEPHALOPATHY Status: Acute Plan: Improved, likely multifactorial (4) Hypertension Code(s): I10 - ESSENTIAL (PRIMARY) HYPERTENSION Status: Chronic Qualifiers: Hypertension type: essential hypertension Qualified Code(s): I10 - Essential (primary) hypertension (5) Obesity (BMI 30-39.9) Code(s): E66.9 - OBESITY, UNSPECIFIED Status: Chronic (6) Tobacco abuse Code(s): Z72.0 - TOBACCO USE Status: Chronic - Plan plan discussed w/ family, continue antibiotics, PT/OT, clinical social work therapist, respiratory therapy, out of bed/ambulate Stable overall Start Prednisone 20mg BID Continue Pulmicort, Duonebs Continue Doxycycline PT for mobilization In rehab options pending, likely [facility] in [place] OOB/ambulate with PT
[2019-02-10] MEDS: Montelukast Sodium 10 mg Tablet PO SCH (20:31)
[2019-02-11 06:47] VITALS: BMI 32.4
[2019-02-11] MEDS: Mometasone/Formoterol 120 PUFF INHALER INH SCH ×2 (06:59→19:20)
[2019-02-11] MEDS: Doxycycline 100 MG CAP PO SCH ×2 (08:39→20:12)
[2019-02-11] MEDS: hydrALAZINE 25 MG TAB PO SCH ×2 (08:39→20:12)
[2019-02-11] MEDS: predniSONE 20 MG TAB PO SCH ×2 (08:40→20:12)
[2019-02-11] MEDS: Citalopram 20 MG TAB PO SCH (08:40)
[2019-02-11] MEDS: cloNIDine 0.2 MG TAB PO SCH ×3 (08:40→20:12)
[2019-02-11] MEDS: Famotidine 20 MG TAB PO SCH ×2 (08:40→20:12)
[2019-02-11] MEDS: Verapamil 80 MG TAB PO SCH ×3 (08:41→20:13)
[2019-02-11] MEDS: Enoxaparin Sodium 40 MG/0.4 ML SYRINGE SC SCH (08:43)
--- NOTE | 2019-02-11 09:05 | PRG ---
DATE OF SERVICE: 02/11/2019 SUBJECTIVE: This morning, he is awake, alert, and responsive. He is to be discharged to [facility]. OBJECTIVE: VITAL SIGNS: Temperature 98, pulse 80, respirations 18, saturations 90% on room air, blood pressure 150/80. CHEST: Decreased breath sounds. No wheezing. CARDIAC: Normal S1 and S2. No gallops. ABDOMEN: No mass. ASSESSMENT: 1. Respiratory failure, status post intubation. 2. Sleep apnea. 3. Severe chronic obstructive pulmonary disease. 4. Hypertension. 5. Anxiety. PLAN: Continue present treatment. Disposition as per primary care physician Job ID: [id number]
[2019-02-11 10:21] LABS: #Lymphocytes 1.6 thou/uL (1.20-3.40); #Monocytes 1.1 thou/uL (0.11-0.59); #Neutrophils 8.1 thou/uL (1.40-6.50); %Basophils 0.2 % (0.0-1.0); %Eosinophils 0.4 % (0.0-10.0); %Lymphocytes 14.5 % (21.0-51.0); %Monocytes 9.9 % (0.0-10.0); Hemoglobin 13.2 g/dL (14.0-18.0); Mean Corpuscular HGB CONC 33.5 g/dL (32.0-36.0); Mean Corpuscular Hemoglobin 30.5 pg (27.0-31.0); Mean Corpuscular Volume 91.3 fL (78.0-98.0); Mean Platelet Volume 7.9 fL (7.4-10.4); Platelet Count 127 thou/uL (130-400); RBC Distribution Width 12.6 % (11.5-14.5); Red Blood Cell (RBC) Count 4.32 mill/uL (4.70-6.10); White Blood Cell (WBC) Count 10.7 thou/uL (4.8-10.8)
[2019-02-11 10:48] LABS: ALT (SGPT) 98 U/L (8-55); AST (SGOT) 19 U/L (5-34); Albumin 3.3 g/dL (3.4-4.8); Alkaline Phosphatase 36 U/L (40-110); Anion Gap 12 mmol/L (10-20); BUN (Urea Nitrogen) 21 mg/dL (8.4-25.7); Bilirubin, Total 0.8 mg/dL (0.2-1.2); Calc. Creatinine Clearance 145 mL/min (70-130); Calcium 8.1 mg/dL (7.8-10.44); Carbon Dioxide 25 mmol/L (23-31); Chloride 101 mmol/L (98-107); Estimated GFR-MDRD Greater than 90; Glucose 136 mg/dL (80-115); Potassium 3.5 mmol/L (3.5-5.1); Protein, Total 5.3 g/dL (5.8-8.1); Sodium 134 mmol/L (136-145)
--- NOTE | 2019-02-11 14:14 | DIS ---
DATE OF ADMISSION: 01/28/2019 DATE OF DISCHARGE: 02/11/2019 DISCHARGE DIAGNOSES: 1. Acute respiratory failure with hypoxia and hypercapnia. 2. Acute metabolic encephalopathy. 3. Chronic obstructive pulmonary disease exacerbation. 4. Accelerated hypertension. 5. Mild to moderate obesity with body mass index 30 to 39.9. 6. Obstructive sleep apnea. 7. Tobacco abuse disorder. CONSULTS: Pulmonary and Critical Care. HOSPITAL COURSE: A 63-year-old male patient with known history of COPD, obstructive sleep apnea, who was admitted due to worsening shortness of breath and cough, as well as chest tightness. Impression of COPD exacerbation with acute respiratory failure with hypoxia and hypercapnia was made. The patient was treated with bronchodilators, antibiotics, steroid, as well as noninvasive respiratory support. The patient, however, failed BiPAP and was subsequently intubated. The patient was treated with mechanical ventilator and was subsequently extubated on February 06. Postextubation, the patient did well, but initially had some acute encephalopathy concerning for CVA, but CT of the brain was unremarkable. Mental status soon improved and the patient remained stable; however, he was found to be physically deconditioned, hence was treated with physical and occupational therapy. Was subsequently discharged to acute rehab for further restorative therapy. PHYSICAL EXAMINATION: VITAL SIGNS: Temperature 98.5, pulse 67, respiratory rate 18, SpO2 of 99% on room air, blood pressure is 151/80. GENERAL: Obese male, in no distress. Afebrile. Anicteric. Acyanotic. HEENT: Normocephalic, atraumatic. CARDIOVASCULAR: Regular rhythm and rate with normal heart sounds one and two. RESPIRATORY: Fair air entry bilaterally with no obvious crackle or rhonchi or use of accessory muscles. Expiration is mildly prolonged with some transmitted breath sounds. GASTROINTESTINAL: Full, soft, nontender, nondistended with normal bowel sounds. EXTREMITIES: Grossly normal looking atraumatic with no edema or erythema. Distal pulses are palpable. CENTRAL NERVOUS SYSTEM: Conscious, alert, and oriented x3 with appropriate mental status. Cranial nerves 2 through 12 are grossly intact. The patient moves all extremities. DISCHARGE DISPOSITION: [facility]. DISCHARGE CONDITION: Improved. DISCHARGE MEDICATIONS: 1. Prednisone tapering course. 2. Montelukast 10 mg daily. 3. Hydralazine 75 mg p.o. b.i.d. 4. Pepcid 20 mg p.o. b.i.d. 5. Doxycycline 100 mg p.o. b.i.d. for 10 days. 6. Clonidine 0.2 mg p.o. t.i.d. 7. Verapamil 360 mg p.o. daily. 8. Spiriva 18 mcg p.o. daily inhalation. 9. Celexa 40 mg p.o. daily. 10. Tudorza Pressair 400 mcg p.o. daily. 11. DuoNeb 3 mL q.i.d. Discharge took more than 30 minutes. Job ID: [id number]
[2019-02-11] MEDS: Montelukast Sodium 10 mg Tablet PO SCH (20:12)
[2019-02-11 20:17] VITALS: BP 126/80; TEMP 98.2
== END 2019-02-11 22:02 | DRG 207 ==
LOC: ERS 12:12 → IMCU/EMU 14:12 → CCU 22:49 → T4-B 02-08 08:05
PROVIDERS: ADMIT Family Medicine; ATTEND Family Medicine
PROC: 5A1955Z Respiratory Ventilation, Greater than 96 Consecutive Hours (ICD-10-PCS; principal; 2019-01-28)
PROC: 0BH17EZ Insertion of Endotracheal Airway into Trachea, Via Natural or Artificial Opening (ICD-10-PCS; 2019-01-28)
PROC: 0B9D8ZX Drainage of Right Middle Lung Lobe, Via Natural or Artificial Opening Endoscopic, Diagnostic (ICD-10-PCS; 2019-02-02)
PROC: 0BC78ZZ Extirpation of Matter from Left Main Bronchus, Via Natural or Artificial Opening Endoscopic (ICD-10-PCS; 2019-02-02)
PROC: 0BC38ZZ Extirpation of Matter from Right Main Bronchus, Via Natural or Artificial Opening Endoscopic (ICD-10-PCS; 2019-02-02)
DX: J96.01 Acute respiratory failure with hypoxia (principal); G93.41 Metabolic encephalopathy; J44.1 Chronic obstructive pulmonary disease with (acute) exacerbation; J96.02 Acute respiratory failure with hypercapnia; G47.33 Obstructive sleep apnea (adult) (pediatric); E66.01 Morbid (severe) obesity due to excess calories; Z88.0 Allergy status to penicillin; G25.81 Restless legs syndrome; I16.0 Hypertensive urgency; Z68.39 Body mass index [BMI] 39.0-39.9, adult; J45.909 Unspecified asthma, uncomplicated; F17.210 Nicotine dependence, cigarettes, uncomplicated; I11.0 Hypertensive heart disease with heart failure; I50.9 Heart failure, unspecified; R74.0 Nonspecific elevation of levels of transaminase and lactic acid dehydrogenase [LDH]; J96.11 Chronic respiratory failure with hypoxia; F41.9 Anxiety disorder, unspecified
CPT/HCPCS: 36415; 70450; 71045; 74018; 80048; 80053; 82805; 83735; 83880; 84100; 85007; 85025; 85027; 93005; 93306; 94002; 94003; 94640; 94660; 96374; J0360; J0696; J1650; J1940; J2060; J2270; J2405; J2704; J2765; J2920; J3010; J3475; J3490; J7512; J7611; J7620; J7626; S0028

== ENCOUNTER 2020-09-22 19:00 | Outpatient (CLI) | payer OTHER | END 2020-09-22 19:01 | disposition home or self-care (01) | LOC: SLEEPLAB 19:00 | PROVIDERS: ATTEND Family Medicine | DX: G47.33 Obstructive sleep apnea (adult) (pediatric) (principal); R09.89 Other specified symptoms and signs involving the circulatory and respiratory systems; R06.83 Snoring; F32.9 Major depressive disorder, single episode, unspecified; J44.9 Chronic obstructive pulmonary disease, unspecified; I10 Essential (primary) hypertension; G47.00 Insomnia, unspecified; G47.10 Hypersomnia, unspecified | CPT/HCPCS: 95810 ==

== ENCOUNTER 2020-09-23 02:22 | Emergency (ER) | payer OTHER ==
[2020-09-23] MEDS ORDERED: Magnesium 2 GM/50 ML BAG (IN WATER) ONE (02:40)
[2020-09-23 03:00] LABS: #Basophils 0.1 thou/uL (0.0-0.2); #Eosinphils 0.4 thou/uL (0.0-0.7); #Lymphocytes 2.3 thou/uL (1.20-3.40); #Monocytes 0.9 thou/uL (0.11-0.59); %Basophils 0.8 % (0.0-1.0); %Eosinophils 3.2 % (0.0-10.0); %Lymphocytes 18.4 % (21.0-51.0); %Neutrophils 70.6 % (42.0-75.0); Hemoglobin 15.1 g/dL (14.0-18.0); Mean Corpuscular Hemoglobin 30.5 pg (27.0-31.0); Mean Corpuscular Volume 89.5 fL (78.0-98.0); Mean Platelet Volume 7.5 fL (7.4-10.4); Platelet Count 195 thou/uL (130-400); RBC Distribution Width 12.3 % (11.5-14.5); Red Blood Cell (RBC) Count 4.97 mill/uL (4.70-6.10); White Blood Cell (WBC) Count 12.7 thou/uL (4.8-10.8)
[2020-09-23 03:29] LABS: ALT (SGPT) 23 U/L (8-55); AST (SGOT) 18 U/L (5-34); Alkaline Phosphatase 70 U/L (40-110); Anion Gap 14 mmol/L (10-20); BUN (Urea Nitrogen) 9 mg/dL (8.4-25.7); Bilirubin, Total 0.8 mg/dL (0.2-1.2); Calc. Creatinine Clearance 0 mL/min (70-130); Calcium 9.3 mg/dL (7.8-10.44); Carbon Dioxide 29 mmol/L (23-31); Chloride 97 mmol/L (98-107); Globulin 2.6 g/dL (2.4-3.5); Glucose 107 mg/dL (80-115); Potassium 3.9 mmol/L (3.5-5.1); Protein, Total 6.6 g/dL (5.8-8.1); Sodium 136 mmol/L (136-145)
[2020-09-23 03:57] LABS: SARS-CoV-2 NAA Rapid Test Not Detected (NotDetected)
== END 2020-09-23 04:33 | disposition home or self-care (01) ==
LOC: ERS 02:22
DX: J45.901 Unspecified asthma with (acute) exacerbation (principal); I10 Essential (primary) hypertension; F17.200 Nicotine dependence, unspecified, uncomplicated; Z20.822 Contact with and (suspected) exposure to COVID-19
CPT/HCPCS: 0240U; 36415; 71045; 80053; 83880; 84484; 85025; 93005; 96365; J3475

== ENCOUNTER 2023-01-21 09:40 | Outpatient (CLI) | payer MEDICARE, OTHER | END 2023-01-21 09:41 | disposition home or self-care (01) | LOC: RAD 09:40 | PROVIDERS: ATTEND Internal Medicine Critical Care Medicine | DX: R06.00 Dyspnea, unspecified (principal); J98.4 Other disorders of lung; R91.8 Other nonspecific abnormal finding of lung field | CPT/HCPCS: 71046 ==

== ENCOUNTER 2023-10-29 10:22 | Outpatient (CLI) | payer MEDICARE | END 2023-10-29 10:23 | disposition home or self-care (01) | LOC: RAD 10:22 | PROVIDERS: ATTEND Internal Medicine Critical Care Medicine | DX: R06.00 Dyspnea, unspecified (principal); R91.8 Other nonspecific abnormal finding of lung field | CPT/HCPCS: 71046 ==